=== PATIENT | male | born 1940 ===

== ENCOUNTER 2020-06-20 17:06 | Inpatient (IN) | payer MEDICARE, OTHER ==
[2020-06-20] MEDS ORDERED: HEPARIN SODIUM,PORCINE 5,000 UNIT/ML 1 ML VIAL IV PRN (17:19)
[2020-06-20] MEDS: HEPARIN SOD,PORK IN 0.45% NACL 25,000 UNIT in 0.45% NACL 1 250ML.BAG IV SCH (17:50)
[2020-06-20] MEDS: SODIUM CHLORIDE 0.9% 1,000 ML IV SCH (17:53)
[2020-06-20 18:00] LABS: Glucose,Whole Blood 141 mg/dL (75-99)
--- NOTE | 2020-06-20 18:41 | XR ---
EXAMINATION TYPE: XR chest 1V portable DATE OF EXAM: 06/20/2020 CLINICAL HISTORY: Preoperative cardiac surgery. TECHNIQUE: Single AP portable frontal upright view of the chest is obtained. COMPARISON: None FINDINGS: There is reticular interstitial changes bilaterally felt to reflect chronic parenchymal fib rosis. There is no suspicious focal air space opacity, pleural effusion, or pneumothorax seen. The c ardiac silhouette size is upper limits of normal with atherosclerotic thoracic aorta. Degenerative ch jhony bilateral glenohumeral joints. IMPRESSION: Chronic changes without acute pulmonary process.
--- NOTE | 2020-06-20 18:51 | P.GSCN ---
History of Present Illness Consult date: 06/20/20 Reason for Consult: Symptomatic multivessel coronary artery disease, non-STEMI this admission, evaluation for myocardial revascularization surgery. Requesting physician: Nuria Coombs History of present illness: This is an 80-year-old gentleman who is followed by Dr. Hawthorne on an outpatient basis. He is a past medical history significant for myasthenia gravis. The patient is a poor historian, although reports he reported to [facility] emergency room Department on 06/17/2020 with complaints of shortness of breath, a 40 pound weight loss since spring, difficulty swallowing and taking his pills, dizziness which has been present for about 2 weeks, unable to open his eyes and had some upper extremity weakness. He denies any nausea, vomiting, fever, chills, syncope, orthopnea or chest pain. According to his records from [facility] the patient was not taking his medications for his myasthenia gravis due to his inability to swallow. The patient reports that he does stay active, working in his yard, mowing his grass and completing another house chores although lately has been getting shortness of breath with walking only around 100 feet. A computed tomography scan of his abdomen was completed at [facility] which showed a normal liver, normal gallbladder, and no pancreatic mass. A computed tomography scan of the chest was completed which showed some mild atelectasis, no pulmonary embolus, and no pleural effusions. A chest x-ray report from [facility] showed some mild atelectasis left lung. The patient was started on Augmentin for possible aspiration pneumonia. A 12-lead EKG was also completed which showed normal sinus rhythm, atrial premature complexes in couplets, abnormal R-wave progression with a heart rate of 78. Lab work from 06/20/2020 from [facility] showed a WBC count of 23.7, hemoglobin 15.5, platelets 267, BUN 24, creatinine 0.9, glucose 163, AST 58, ALT 98, hemoglobin A1c 5.6, troponin as high as 7.489, a negative COVID-19 test and a TSH from 06/18/2020 1.132. A 2-D echocardiogram was also completed which showed a normal left ventricular size, moderate concentric left ventricular hypertrophy, left ventricular systolic function to be severely decreased with an ejection fraction of 30%, moderate aortic valve regurgitation, trace mitral valve regurgitation, moderate tricuspid valve regurgitation and no pericardial effusion. Subsequently, due to the patient's shortness of breath and positive troponins he was seen by Dr. FELICITAS Coombs from [facility] and underwent a cardiac catheterization today 06/20/2020 which demonstrated an 80% stenosis to his distal left main coronary artery with a haziness suggestive of thrombus, a 90% stenosis to his ostial left anterior descending coronary artery, a 60% stenosis to his mid left anterior descending coronary artery, an 80% ostial circumflex stenosis, a 60-70% stenosis to his mid circumflex coronary artery, and a 70% stenosis to his PLV coronary artery. Due to the findings on the cardiac catheterization the patient was transferred to [facility] for further workup and evaluation by cardiothoracic surgery. A consult was placed to Dr. Wilber Mcclelland. Review of Systems A 14 point review of systems was completed and was negative except as mentioned in the HPI. Past Medical History Additional Past Medical History / Comment(s): Myasthenia gravis History of Any Multi-Drug Resistant Organisms: None Reported Past Surgical History: Hernia Repair Additional Past Surgical History / Comment(s): Bilateral cataract surgery, right arm surgery due to a fractured bone as a child. History of umbilical and right inguinal hernia surgery. Past Psychological History: No Psychological Hx Reported Smoking Status: Never smoker Past Alcohol Use History: Rare Past Drug Use History: None Reported - Past Family History Father Additional Family Medical History / Comment(s): Alzheimer's Mother Additional Family Medical History / Comment(s): Alzheimer's Medications and Allergies Allergies Allergy/AdvReac Type Severity Reaction Status Date / Time No Known Allergies Allergy Verified 06/20/20 17:13 Surgical - Exam - General well developed, well nourished, no distress, no pain - Eyes PERRL, normal ocular movement - ENT normal pinna, normal nares, normal mucosa, no hearing loss, no congestion, poor senior care - Neck Neck is supple, no JVD, no lymphadenopathy. no masses, no bruits, trachea midline, no venous distension - Respiratory lungs sounds essentially clear throughout, diminished to his bilateral bases. No wheezes, rhonchi or crackles. Respirations are symmetrical and nonlabored. - Cardiovascular Irregular rhythm with controlled rate. S1 and S2 present, negative for S3, gallop or murmur. - Abdomen Abdomen is soft, nontender and nondistended. Active bowel sounds present in all 4 abdominal quadrants. No guarding or rigidity. No organomegaly appreciated. - Genitourinary Deferred - Rectum Deferred - Integumentary no rash, no growths, no abnormal pigmentation - Neurologic No focal deficits. normal coordination, normal sensation - Psychiatric oriented to time, oriented to person, oriented to place, speech is normal, memory intact Results - Labs Abnormal Lab Results - Last 24 Hours (Table) 06/20/20 Range/Units 17:59 POC Glucose (mg/dL) 141 H (75-99) mg/dL - Imaging Additional studies: Heart catheterization results reviewed, 2-D echocardiogram results reviewed. Assessment and Plan Assessment: 1. Multivessel coronary artery disease 2. Non-ST elevated myocardial infarction this admission 3. Progressive dyspnea, possibly secondary to above 4. Myasthenia gravis, recent difficulty swallowing and 40 pound weight loss 5. High risk for aspiration, secondary to myasthenia gravis 6. Documented aspiration pneumonia, currently on Augmentin Plan: The patient was seen and examined at his bedside in the intensive care unit. His chart and diagnostics were reviewed. This case was discussed in detail with Dr. Wilber Mcclelland from cardiothoracic surgery, the patient will be seen and examined by cardiothoracic surgeon tomorrow 06/21/2020. Preoperative testing and preoperative teaching has been initiated. The usual preoperative course of open heart surgery were discussed with the patient in detail, risks and benefits were reviewed and all questions were answered. Continue to optimize medical management with statin, aspirin and beta kyaw. Cardiology recommendations per Dr. FELICITAS Coombs and cardiology associates. Medical management per primary care service. A STS risk score will be calculated once all preoperative testing has been completed. More recommendations to follow based on patient's clinical course and as his preoperative testing has been completed. Due to the patient's other comorbid condition in the form of myasthenia gravis the patient may be a high risk for myocardial revascularization surgery which will be further discussed versus complex multivessel PCI with heart pump support. Thank you Dr. Coombs for this consult and we look forward to working with you in the care of this patient. Time with Patient: Greater than 30
[2020-06-20 18:54] LABS: Basophils % (A) 0 %; Eosinophils # (A) 0.1 k/uL (0-0.7); Eosinophils % (A) 1 %; HCT 51.3 % (39.0-53.0); HGB 16.3 gm/dL (13.0-17.5); Lymphocytes # (A) 1.8 k/uL (1.0-4.8); Lymphocytes % (A) 7 %; MCH 30.9 pg (25.0-35.0); MCHC 31.7 g/dL (31.0-37.0); MCV 97.4 fL (80.0-100.0); Mean Platelet Volume 8.7; Monocytes # (A) 1.4 k/uL (0-1.0); Monocytes % (A) 6 %; Neutrophils # (A) 21.3 k/uL (1.3-7.7); Neutrophils % (A) 86 %; Platelet Count 301 k/uL (150-450); RBC 5.27 m/uL (4.30-5.90); RDW 12.1 % (11.5-15.5); WBC 24.8 k/uL (3.8-10.6)
[2020-06-20 19:00] LABS: ALT 77 U/L (4-49); AST 65 U/L (17-59); African American GFR (CKD) >90 (>60 ml/min/1.73 sqM); Albumin 3.6 g/dL (3.5-5.0); Alkaline Phosphatase 73 U/L (38-126); Anion Gap -3 mmol/L; Blood Urea Nitrogen 21 mg/dL (9-20); Calcium 9.3 mg/dL (8.4-10.2); Carbon Dioxide 26 mmol/L (22-30); Chloride 113 mmol/L (98-107); Glucose 141 mg/dL (74-99); INR 1.1 (<1.2); Magnesium 2.3 mg/dL (1.6-2.3); Non-African American GFR(CKD) >90 (>60 ml/min/1.73 sqM); Partial Thromboplastin Time 48.8 sec (22.0-30.0); Phosphorus 3.1 mg/dL (2.5-4.5); Potassium 4.2 mmol/L (3.5-5.1); Prothrombin Time 11.4 sec (9.0-12.0); Sodium 136 mmol/L (137-145); Total Bilirubin 1.1 mg/dL (0.2-1.3); Total Protein 5.9 g/dL (6.3-8.2)
[2020-06-20 19:29] LABS: Cholesterol 155 mg/dL (<200); HDL Cholesterol 61 mg/dL (40-60); LDL Cholesterol,Calculated 74 mg/dL (0-99); Triglycerides 99 mg/dL (<150)
[2020-06-20] MEDS ORDERED: ALBUTEROL NEBULIZED 2.5 MG/3 ML INHALATION PRN (20:12)
[2020-06-20] MEDS ORDERED: ACETAMINOPHEN TAB 325 MG TAB PO PRN (20:12)
[2020-06-20] MEDS ORDERED: ONDANSETRON 4 MG/2 ML VIAL IVP PRN (20:35)
[2020-06-20 20:42] LABS: Glucose,Whole Blood 144 mg/dL (75-99)
[2020-06-20] MEDS ORDERED: PYRIDOSTIGMINE 60 MG TAB PO SCH (21:00)
[2020-06-20] MEDS ORDERED: AMOXIC-POT CLAV 875-125MG 1 EACH TAB PO SCH (21:00)
[2020-06-20] MEDS ORDERED: METOPROLOL TARTRATE 12.5 MG TAB PO SCH ×2 (21:00→22:00)
[2020-06-20] MEDS: INSULIN ASPART (NovoLOG) 100 UNIT/ML VIAL SQ SCH (21:17)
[2020-06-20] MEDS: methylPREDNISolone SOD SUCCI 125 MG/2 ML VIAL IV SCH (21:18)
[2020-06-20] MEDS: MUPIROCIN 2% OINT 22 GM TUBE NASAL SCH (21:18)
--- NOTE | 2020-06-20 23:08 | P.HPIM ---
History of Present Illness H&P Date: 06/20/20 Chief Complaint: Non-ST CT, multiple coronary artery disease, severe progressive myasthenia 80-year-old male one of Dr. Hawthorne patient who presented to [facility] on 06/17/2012 with significant dysphagia and shortness of breath with significant anorexia. Ended up going for significant workup at [facility] CT of the chest failed to show any PE but found aspiration pneumonia, patient was started on heavy doses of steroids along with Mestinon for his myasthenia gravis and symptoms improved some but developed to have run of V. tach last night was seeing cardiology BNP was moderately elevated 12-lead EKG showed some PVCs echocardiogram showed significant decrease in ejection fraction with EF of only 30-35 percentile with wall more Chin abnormality of the left ventricle with possible ballooning syndrome patient ended up going to the labour market economist with Dr. Catrachito carrillo finding consistent with 80% stenosis of the distal left main with haziness suggestive of thrombus, 90% stenosis of the ostial left anterior descending coronary artery, 60% stenosis of mid left anterior descending coronary artery and 80% oh still circumflex stenosis and 60-70% stenosis of the mid circumflex coronary artery 70% stenosis of PLV coronary artery due to the current finding and the symptom patient was transferred to [facility] to be seen by cardiothoracic surgeon for possible open heart surgery. Still symptomatic with his anorexia and dysphagia has been on steroid which made his white blood cell and blood sugar slightly but elevated he has responded to Mestinon quite well so far and continue medication. Optimize medical management still been treated for aspiration pneumonia patient seen pulmonary service at [facility] which will be continued at [facility] as well. Review of Systems CONSTITUTIONAL: Well-developed no acute respiratory distress. EYES: No icterus sclerae, no conjunctivitis. Positive slight heaviness in the eyelid and opening area. EARS, NOSE, MOUTH, THROAT, and FACE: No sore throat, lymphadenopathy, carotid bruits or deformity. RESPIRATORY: Positive shortness of breath cough no wheezes. CARDIOVASCULAR: Positive V. tach along with significant coronary disease. GASTROINTESTINAL: Positive abdominal discomfort with nausea no vomiting positive dysphagia. GENITOURINARY: Negative for Hematuria or UTI, no kidney stones. INTEGUMENT/BREAST: Negative for any muscular injury with mild osteoarthritis.. HEMATOLOGIC/LYMPHATIC: Negative for bleed or purpura. MUSCULOSKELTAL: Negative for Myalgia or arthralgia. NEURLOGICAL: No LOC, Sz or syncope, blurred vision dizziness or abnormality.. Positive significant weakness and myasthenia. BEHAVIORAL/PSYCH: Negative. ENDOCRINE: Negative. Past Medical History Past Medical History: Chest Pain / Angina Additional Past Medical History / Comment(s): Myasthenia gravis History of Any Multi-Drug Resistant Organisms: None Reported Past Surgical History: Hernia Repair Additional Past Surgical History / Comment(s): Bilateral cataract surgery, right arm surgery due to a fractured bone as a child. History of umbilical and right inguinal hernia surgery. Past Anesthesia/Blood Transfusion Reactions: No Reported Reaction Past Psychological History: No Psychological Hx Reported Smoking Status: Never smoker Past Alcohol Use History: Rare Past Drug Use History: None Reported - Past Family History Father Additional Family Medical History / Comment(s): Alzheimer's Mother Additional Family Medical History / Comment(s): Alzheimer's Medications and Allergies Home Medications Medication Instructions Recorded Confirmed Type Acetaminophen Tab [Tylenol] 650 mg PO Q6H PRN 06/20/20 06/20/20 History Albuterol Nebulized [Ventolin 2.5 mg INHALATION RT-QID PRN 06/20/20 06/20/20 History Nebulized] Amoxic-Pot Clav 875-125Mg 1 tab PO Q12H 06/20/20 06/20/20 History [Augmentin 875-125] Aspirin EC [Ecotrin Low Dose] 81 mg PO DAILY 06/20/20 06/20/20 History Chlorhexidine Gluconate [Hibiclens] 1 applic TOPICAL DAILY PRN 06/20/20 06/20/20 History Famotidine [Pepcid] 20 mg PO DAILY 06/20/20 06/20/20 History INSULIN LISPRO (humaLOG) [humaLOG] See Protocol SQ ACHS 06/20/20 06/20/20 History Losartan [Cozaar] 25 mg PO DAILY 06/20/20 06/20/20 History Metoprolol Tartrate [Lopressor] 12.5 mg PO TID 06/20/20 06/20/20 History Pyridostigmine [place] [Mestinon] 120 mg PO AC-TID 06/20/20 06/20/20 History Pyridostigmine [place] [Mestinon] 180 mg PO HS 06/20/20 06/20/20 History Solu-Medrol 60mg Injection 60 mg IV Q8H 06/20/20 06/20/20 History Zofran 4mg Injection 4 mg IV Q4H PRN 06/20/20 06/20/20 History Allergies Allergy/AdvReac Type Severity Reaction Status Date / Time No Known Allergies Allergy Verified 06/20/20 19:29 Physical Exam Vitals: Vital Signs Temp Pulse Resp BP Pulse Ox 06/20/20 19:45 72 22 109/92 94 L 06/20/20 19:30 73 26 H 139/97 94 L 06/20/20 19:15 98 13 128/89 95 06/20/20 19:00 83 12 130/105 92 L 06/20/20 18:45 97 22 134/93 92 L 06/20/20 18:30 73 20 125/97 92 L 06/20/20 18:15 92 11 L 136/98 92 L 06/20/20 18:06 97.5 F L 78 17 136/98 92 L Intake and Output 06/20/20 06/20/20 06/20/20 06:59 14:59 22:59 Intake Total 150 Balance 150 Intake: Intake, IV Titration 150 Amount Sodium Chloride 0.9% 1, 150 000 ml @ 75 mls/hr IV . [id number] Rx#:[id number] Other: Weight 82.5 kg General Appearance: Alert, cooperative, no distress, appears stated age. Neck HEENT: Supple, no lymphadenopathy, no thyroid enlargement, no carotid bruits. Opening of dye slightly red different and had mild upper eye lid ptosis Lungs: Clear to auscultation without crackles or wheezes positive for rhonchi and crackles in the bases specially the right side. Chest Wall: Decrease expansion with deep inspiration no tenderness and no deformity was found on exam, no costochondral pain or discomfort. Heart: Regular rate and rhythm, S1, S2 normal,, rub or gallop. Positive systolic murmur. Back: Symmetric, no curvature, ROM normal, no CVA tenderness. Abdomen: Soft, non-tender, bowel sounds active all four quadrants, no masses, no organomegaly. Extremities: Extremities normal, atraumatic, no cyanosis or edema. Pulses: 2+ and symmetric. Skin: Skin color, texture, tugor normal, no rashes or lesions. Neurologic: Alert oriented x3 cranial nerves II through XII intact, no motor deficit, positive abnormal balance or gait. Results CBC & Chem 7: 06/20/20 18:27 06/20/20 18:27 Labs: Abnormal Lab Results - Last 24 Hours (Table) 06/20/20 06/20/20 06/20/20 Range/Units 17:59 18:27 18:27 WBC 24.8 H (3.8-10.6) k/uL Neutrophils # 21.3 H (1.3-7.7) k/uL Monocytes # 1.4 H (0-1.0) k/uL APTT 48.8 H (22.0-30.0) sec Sodium (137-145) mmol/L Chloride (98-107) mmol/L BUN (9-20) mg/dL Creatinine (0.66-1.25) mg/dL Glucose (74-99) mg/dL POC Glucose (mg/dL) 141 H (75-99) mg/dL AST (17-59) U/L ALT (4-49) U/L Total Protein (6.3-8.2) g/dL HDL Cholesterol (40-60) mg/dL 06/20/20 Range/Units 18:27 WBC (3.8-10.6) k/uL Neutrophils # (1.3-7.7) k/uL Monocytes # (0-1.0) k/uL APTT (22.0-30.0) sec Sodium 136 L (137-145) mmol/L Chloride 113 H (98-107) mmol/L BUN 21 H (9-20) mg/dL Creatinine 0.61 L (0.66-1.25) mg/dL Glucose 141 H (74-99) mg/dL POC Glucose (mg/dL) (75-99) mg/dL AST 65 H (17-59) U/L ALT 77 H (4-49) U/L Total Protein 5.9 L (6.3-8.2) g/dL HDL Cholesterol 61 H (40-60) mg/dL Thrombosis Risk Factor Assmnt - DVT/VTE Prophylaxis DVT/VTE Prophylaxis: Pharmacologic Prophylaxis ordered, Mechanical Prophylaxis ordered Assessment and Plan Assessment: [address]: With multiple coronary artery disease as described patient be seen in cardiothoracic surgery and might go for open heart surgery next few days. 2 aspiration pneumonia: Was on Augmentin freeman Ashley, was start patient on medication for now if relapse IV medication can be use continue albuterol nebulizer to help from any airway trapping. 3 severe progressive myasthenia gravis: Has been on Mestinon 120 mg 3 times a day along with Mestinon 180 mg at bedtime still on heavy dose of steroid with Solu-Medrol injection 60 mg every 8 hours. 4 Hypertension: Remain on losartan metoprolol. 5 significant leukocytosis: Mostly secondary to steroid use at this point. 6 abnormal liver function test: Not a clear etiology this point if needed will do liver and gallbladder ultrasound. 7 steroid-induced hyperglycemia: Continue Accu-Chek with sliding scales coverage. 8 GI prophylaxis: Patient be on pantoprazole. 8 DVT prophylaxis: Patient continues heparin subcutaneous if the surgery be delayed otherwise continue knee-high JASS hose and Venodyne boots. 9 mild reactive airway: Remain on DuoNeb as needed. 10 Covid 19 testing was -48 hours ago. CODE STATUS: Full code. Admit patient to inpatient service for more than 2 days' stay.
[2020-06-21 03:24] LABS: Appearance,Urine Clear (Clear); Bilirubin,Urine Negative (Negative); Blood,Urine Large (Negative); Color,Urine Yellow; Glucose,Urine (UA) Negative (Negative); Hyaline Casts,Urine 1 /lpf (0-2); Ketones,Urine Negative (Negative); Leukocyte Esterase,Urine Negative (Negative); Mucus,Urine Few /hpf; Nitrite,Urine Negative (Negative); Protein,Urine Trace (Negative); RBC,Urine >182 /hpf (0-5); Specific Gravity,Urine 1.035 (1.001-1.035); Urobilinogen,Urine <2.0 mg/dL (<2.0); WBC,Urine 3 /hpf (0-5)
[2020-06-21 05:19] LABS: Basophils % (A) 0 %; Eosinophils % (A) 0 %; HCT 47.5 % (39.0-53.0); HGB 15.3 gm/dL (13.0-17.5); Lymphocytes # (A) 1.5 k/uL (1.0-4.8); Lymphocytes % (A) 6 %; MCHC 32.3 g/dL (31.0-37.0); Mean Platelet Volume 8.9; Monocytes # (A) 2.1 k/uL (0-1.0); Monocytes % (A) 9 %; Neutrophils % (A) 84 %; Platelet Count 287 k/uL (150-450); RBC 4.94 m/uL (4.30-5.90); RDW 12.7 % (11.5-15.5); WBC 24.9 k/uL (3.8-10.6)
[2020-06-21 05:28] LABS: ALT 65 U/L (4-49); AST 52 U/L (17-59); African American GFR (CKD) >90 (>60 ml/min/1.73 sqM); Albumin 3.2 g/dL (3.5-5.0); Alkaline Phosphatase 64 U/L (38-126); Anion Gap -1 mmol/L; Blood Urea Nitrogen 21 mg/dL (9-20); Calcium 9.1 mg/dL (8.4-10.2); Carbon Dioxide 24 mmol/L (22-30); Chloride 113 mmol/L (98-107); Glucose 125 mg/dL (74-99); Magnesium 2.3 mg/dL (1.6-2.3); Non-African American GFR(CKD) >90 (>60 ml/min/1.73 sqM); Potassium 4.2 mmol/L (3.5-5.1); Sodium 136 mmol/L (137-145); Total Bilirubin 1.1 mg/dL (0.2-1.3); Total Protein 5.4 g/dL (6.3-8.2)
[2020-06-21 05:29] LABS: INR 1.1 (<1.2); Partial Thromboplastin Time 62.6 sec (22.0-30.0); Prothrombin Time 11.3 sec (9.0-12.0)
[2020-06-21] MEDS: methylPREDNISolone SOD SUCCI 125 MG/2 ML VIAL IV SCH (05:30)
[2020-06-21] MEDS: SODIUM CHLORIDE 0.9% 1,000 ML IV SCH ×2 (05:30→20:47)
[2020-06-21 06:49] LABS: Glucose,Whole Blood 127 mg/dL (75-99)
[2020-06-21] MEDS: INSULIN ASPART (NovoLOG) 100 UNIT/ML VIAL SQ SCH ×4 (06:49→21:00)
[2020-06-21] MEDS: PYRIDOSTIGMINE 60 MG TAB PO SCH ×3 (06:54→20:39)
[2020-06-21] MEDS ORDERED: PIPERACILLIN-TAZOBACTAM 3.375 GM in SODIUM CHLORIDE 0.9% 100 ML IVPB SCH (08:30)
[2020-06-21] MEDS ORDERED: ASPIRIN 81 MG PO SCH (09:00)
[2020-06-21] MEDS: ASPIRIN 81 MG PO SCH (09:32)
[2020-06-21] MEDS: FAMOTIDINE 20 MG TAB PO SCH (09:32)
[2020-06-21] MEDS: ATORVASTATIN 80 MG TAB PO SCH (09:32)
[2020-06-21] MEDS: METOPROLOL TARTRATE 25 MG TAB PO SCH ×2 (09:32→20:45)
[2020-06-21] MEDS: MUPIROCIN 2% OINT 22 GM TUBE NASAL SCH ×2 (09:33→21:00)
[2020-06-21] MEDS: LOSARTAN 25 MG TAB PO SCH (09:35)
--- NOTE | 2020-06-21 10:04 | PN ---
PROGRESS NOTE Mr. Anderson is an 80-year-old male who presented to [facility] and was found to have evidence of non ST-segment elevation myocardial infarction, underwent cardiac catheterization by Dr. Coombs yesterday and was found to have severe triple- vessel coronary artery disease with an 80% distal left main, 90% ostial LAD, 60% mid LAD, 80% ostial circumflex and significant disease in the PLV. He was transferred to [facility] to undergo evaluation for surgical intervention. Patient has a history of myasthenia gravis with some difficulty swallowing. This morning he is not complaining of any chest pain. He has a cough, productive of clear sputum. He denies any dizziness or palpitation. He denies any nausea. He had a chest x-ray performed that showed no acute infiltrate. He continues to be on IV heparin, aspirin, Lipitor 80 mg daily, losartan 25 mg daily. He is receiving methyl prednisolone. He is on metoprolol tartrate 12.5 mg 3 times a day. PHYSICAL EXAMINATION: Blood pressure 113/70 with a heart rate in the 70s. LUNGS: No wheezes or rales. HEART: S1, S2. No S3 with systolic murmur heard at the base. No diastolic murmur, no rub. ABDOMEN: Soft, nontender, positive bowel sounds. EXTREMITIES: No edema, right radial pulse intact. LAB DATA: Revealed hemoglobin 15.3, white blood cell 24.9, BUN and creatinine 21 and 0.62. Potassium 4.2. IMPRESSION: 1. Non ST-segment elevation myocardial infarction with severe coronary artery disease. 2. Myasthenia gravis. 3. Recent weight loss. 4. Ischemic cardiomyopathy. RECOMMENDATION: Will await the input of the Surgical Team. In the meantime, will continue on the present therapy. I will adjust the dose of his beta kyaw. Will continue IV heparin and depending on his progress, further recommendation will be made. MMODL / IJN: [id number] /
--- NOTE | 2020-06-21 11:31 | XR ---
EXAMINATION TYPE: XR chest 1V portable DATE OF EXAM: 06/21/2020 CLINICAL HISTORY: Aspiration pneumonia TECHNIQUE: Portable upright view of the chest obtained COMPARISON: 06/20/2020 chest radiograph FINDINGS: The cardiomediastinal silhouette is within normal limits for size. Pulmonary vasculature i s normal. Mildly coarsened interstitial markings. Small focus of linear atelectasis of the left costo phrenic angle. There is no focal air space opacity, pleural effusion, or pneumothorax seen. Degenerat suman changes of the shoulders. IMPRESSION: No acute cardiopulmonary process.
--- NOTE | 2020-06-21 11:51 | ECHOF ---
Referral Reason:nstemi MEASUREMENTS -------- HEIGHT: 152.4 cm WEIGHT: 82.6 kg BP: RVIDd: 3.6 cm (< 3.3) IVSd: 1.6 cm (0.6 - 1.1) LVIDd: 4.5 cm (3.9 - 5.3) LVPWd: 2.0 cm (0.6 - 1.1) EDV(Teich): 94 ml IVSs: 2.0 cm LVIDs: 4.5 cm LVPWs: 1.4 cm %IVS Thck: 29 % ESV(Teich): 90 ml EF(Teich): 4 % %FS: 2 % SV(Teich): 3 ml LA Diam: 4.4 cm (2.7 - 3.8) MV EXCURSION: 18.742 mm (> 18.000) MV EF SLOPE: 51 mm/s (70 - 150) EPSS: 0.3 cm MV E Raj: 0.37 m/s MV DecT: 240 ms MV Dec [place]: 1.6 m/s MV A Raj: 0.79 m/s MV E/A Ratio: 0.48 MV PHT: 70 ms TR Vmax: 2.41 m/s TR maxP.31 mmHg RAP: 5.00 mmHg RVSP: 28.31 mmHg FINDINGS -------- Sinus rhythm. This was a techncally difficult study with suboptimal views, , Lumason utilized for enhancement of im ages. There is mild concentric left ventricular hypertrophy. There is severe global hypokinesis of LV . Overall left ventricular systolic function is severely impaired with, an EF < 20%. Extensive hypokin esis of anterior wall and apex The right ventricle is normal in size. The left atrium is mildly dilated. The right atrial size is normal. 5.0mg OF Lumason UTLIZED: 2 OR MORE WALL SEGMENTS NOT VISUALIZED. There is mild aortic valve sclerosis. There is no evidence of aortic regurgitation. Mild mitral annular calcification present. Mild mitral regurgitation is present. Mild tricuspid regurgitation present. Right ventricular systolic pressure is normal at < 35 mmHg. There is no pulmonic regurgitation present. The aortic root size is normal. There is a trivial pericardial effusion present. CONCLUSIONS -------- 1. There is mild concentric left ventricular hypertrophy. 2. There is severe global hypokinesis of LV . 3. Overall left ventricular systolic function is severely impaired with, an EF < 20%. 4. The right ventricle is normal in size. 5. The left atrium is mildly dilated. 6. The right atrial size is normal. 7. There is mild aortic valve sclerosis. 8. Mild mitral annular calcification present. 9. Mild mitral regurgitation is present. 10. Mild tricuspid regurgitation present. 11. Right ventricular systolic pressure is normal at < 35 mmHg. 12. There is no pulmonic regurgitation present. 13. There is a trivial pericardial effusion present. TRUCK SERVICE MANAGER: Lizzeth Sears RDCS
[2020-06-21 12:03] LABS: Glucose,Whole Blood 136 mg/dL (75-99)
--- NOTE | 2020-06-21 12:13 | P.CNPUL ---
History of Present Illness Consult date: 06/21/20 Requesting physician: Stanley Cordoba Reason for consult: other (Preoperative pulmonary clearance.) Chief complaint: Non-ST myocardial infarction History of present illness: This is an 80-year-old white male with history of myasthenia gravis. Patient was admitted to [facility] on 06/17/20, and he was mostly admitted with difficulty swallowing and shortness of breath with significant anorexia. CT of the chest and chest x-ray question the possibility of aspiration pneumonia. Patient was placed on antibiotics. And he was also placed on his usual dose of Mestinon for underlying myasthenia gravis. While inpatient, patient developed nonsustained ventricular tachycardia, and elevation of his BNP. Echocardiogram showed significant LV dysfunction with ejection fraction of 30-35%. Patient underwent further cardiac workup including cardiac catheterization, and he was found to have significant triple-vessel coronary artery disease. Considering the cardiac catheterization findings, patient was transferred to [facility], and he is to be seen by surgery to consider myocardial revascularization. Considering his myasthenia gravis and recent episode of questionable pneumonia, this consult was initiated. Patient denies any cough, no fever, no chills, no hemoptysis, he does have difficulty swallowing, and he is now on antibiotics in the form of Zosyn. Chest x-ray done on this admission showed no evidence of infiltrate. Patient had no previous pulmonary history, lifelong nonsmoker. Review of Systems CONSTITUTIONAL: Denies fever chills however he does have some weight loss secondary to poor appetite and difficulty swallowing. EYES: Denies blurred vision or dizziness. EARS, NOSE, throat: Denies any nasal congestion and earache, but again he has difficulty swallowing RESPIRATORY: As noted in HPI. CARDIOVASCULAR: Denies chest pain, he did have ventricular tachycardia while at [facility]. GASTROINTESTINAL: Chronic dysphagia no nausea no vomiting no abdominal pain.. GENITOURINARY: Denied dysuria frequency urgency or hematuria. INTEGUMENT: Has no symptoms of rashes. No pruritus. HEMATOLOGIC/LYMPHATIC: No clotting bleeding or bruising MUSCULOSKELTAL: Chronic muscle weakness related to myasthenia gravis. NEURLOGICAL: Symptoms of weakness related to myasthenia gravis. BEHAVIORAL/PSYCH: Denies any symptoms of depression, denies any anxiety. ENDOCRINE: Denies heat or cold intolerance. Denies any polyuria or polydipsia. Past Medical History Past Medical History: Chest Pain / Angina Additional Past Medical History / Comment(s): Myasthenia gravis History of Any Multi-Drug Resistant Organisms: None Reported Past Surgical History: Hernia Repair Additional Past Surgical History / Comment(s): Bilateral cataract surgery, right arm surgery due to a fractured bone as a child. History of umbilical and right inguinal hernia surgery. Past Anesthesia/Blood Transfusion Reactions: No Reported Reaction Past Psychological History: No Psychological Hx Reported Smoking Status: Never smoker Past Alcohol Use History: Rare Past Drug Use History: None Reported - Past Family History Father Additional Family Medical History / Comment(s): Alzheimer's Mother Additional Family Medical History / Comment(s): Alzheimer's Medications and Allergies Home Medications Medication Instructions Recorded Confirmed Type Acetaminophen Tab [Tylenol] 650 mg PO Q6H PRN 06/20/20 06/20/20 History Albuterol Nebulized [Ventolin 2.5 mg INHALATION RT-QID PRN 06/20/20 06/20/20 History Nebulized] Amoxic-Pot Clav 875-125Mg 1 tab PO Q12H 06/20/20 06/20/20 History [Augmentin 875-125] Aspirin EC [Ecotrin Low Dose] 81 mg PO DAILY 06/20/20 06/20/20 History Chlorhexidine Gluconate [Hibiclens] 1 applic TOPICAL DAILY PRN 06/20/20 06/20/20 History Famotidine [Pepcid] 20 mg PO DAILY 06/20/20 06/20/20 History INSULIN LISPRO (humaLOG) [humaLOG] See Protocol SQ ACHS 06/20/20 06/20/20 History Losartan [Cozaar] 25 mg PO DAILY 06/20/20 06/20/20 History Metoprolol Tartrate [Lopressor] 12.5 mg PO TID 06/20/20 06/20/20 History Pyridostigmine [place] [Mestinon] 120 mg PO AC-TID 06/20/20 06/20/20 History Pyridostigmine [place] [Mestinon] 180 mg PO HS 06/20/20 06/20/20 History Solu-Medrol 60mg Injection 60 mg IV Q8H 06/20/20 06/20/20 History Zofran 4mg Injection 4 mg IV Q4H PRN 06/20/20 06/20/20 History Allergies Allergy/AdvReac Type Severity Reaction Status Date / Time No Known Allergies Allergy Verified 06/20/20 19:29 Physical Exam Vitals: Vital Signs Temp Pulse Resp BP Pulse Ox 06/21/20 07:00 72 10 L 113/79 92 L 06/21/20 06:30 75 20 104/73 95 06/21/20 06:00 73 13 93/60 92 L 06/21/20 05:30 62 12 98/70 90 L 06/21/20 05:00 75 16 108/83 90 L 06/21/20 04:30 74 18 115/75 91 L 06/21/20 04:00 97.8 F 107 H 25 H 144/90 90 L 06/21/20 03:30 111 H 19 111/75 92 L 06/21/20 03:00 96 14 118/83 91 L 06/21/20 02:30 82 16 113/91 91 L 06/21/20 02:00 87 17 98/68 93 L 06/21/20 01:30 80 14 98/73 94 L 06/21/20 01:00 61 13 94/60 92 L 06/21/20 00:30 61 18 112/82 91 L 06/21/20 00:00 97.9 F 98 20 111/80 92 L 06/20/20 23:30 81 20 101/79 95 06/20/20 23:00 73 14 110/79 90 L 06/20/20 22:30 79 14 131/93 91 L 06/20/20 22:00 75 22 133/104 92 L 06/20/20 21:30 70 10 L 119/91 94 L 06/20/20 21:00 90 17 133/85 92 L 06/20/20 20:30 93 19 130/104 93 L 06/20/20 20:15 77 18 118/86 94 L 06/20/20 20:00 97.6 F 89 15 123/89 93 L 06/20/20 19:45 72 22 109/92 94 L 06/20/20 19:30 73 26 H 139/97 94 L 06/20/20 19:15 98 13 128/89 95 06/20/20 19:00 83 12 130/105 92 L 06/20/20 18:45 97 22 134/93 92 L 06/20/20 18:30 73 20 125/97 92 L 06/20/20 18:15 92 11 L 136/98 92 L 06/20/20 18:06 97.5 F L 78 17 136/98 92 L Intake and Output 06/20/20 06/21/20 06/21/20 22:59 06:59 14:59 Intake Total 375 668.475 75 Output Total 250 320 Balance 125 348.475 75 Intake: IV 225 600 75 Sodium Chloride 0.9% 1, 225 600 75 000 ml @ 75 mls/hr IV . [id number] [facility] Rx#:[id number] Intake, IV Titration 150 68.475 Amount Heparin Sod,Pork in 0.45% 68.475 NaCl 25,000 unit In 0.45 % NaCl 1 250ml.bag @ 12 UNITS/KG/HR 9.9 mls/hr IV .Q24H [facility] Rx#:[id number] Sodium Chloride 0.9% 1, 150 000 ml @ 75 mls/hr IV . [id number] [facility] Rx#:[id number] Output: Urine 250 320 Other: Voiding Method Urinal Urinal Weight 82.5 kg 83.1 kg General Appearance: Revealed an 80-year-old white male very pleasant in no distress. Neck HEENT: PERRLA, EOMI, no icterus, no neck masses, no JVD. Lungs: Symmetrical chest expansion, no crackles or rhonchi or wheezes. Chest Wall: Symmetrical chest expansion, no chest wall tenderness. Heart: Normal S1 and S2, regular rate and rhythm, no gallop, 2/6 systolic murmur at the left lower sternal border.. Abdomen: Soft nontender no megaly no rebound no guarding. Positive bowel sounds. Extremities: No clubbing edema or cyanosis. Good pulses bilaterally. And symmetrical Skin: Skin color, normal skin texture and turgor. Neurologic: Alert and oriented 3, no gross focal neurologic deficits. Patient describes muscle weakness mostly proximal muscle weakness upon lifting his upper extremities. Psychiatric: Normal mood affect and normal mental status examination. Results - Laboratory Findings CBC and BMP: 06/21/20 04:25 06/21/20 04:25 PT/INR, D-dimer PT 11.3 sec (9.0-12.0) 06/21/20 04:25 INR 1.1 (<1.2) 06/21/20 04:25 Abnormal lab findings: Abnormal Labs 06/20/20 06/20/20 06/20/20 17:59 18:27 18:27 WBC 24.8 H Neutrophils # 21.3 H Monocytes # 1.4 H APTT 48.8 H Sodium Chloride BUN Creatinine Glucose POC Glucose (mg/dL) 141 H AST ALT Total Protein Albumin HDL Cholesterol Urine Protein Urine Blood Urine RBC Urine Mucus 06/20/20 06/20/20 06/20/20 18:27 20:40 23:57 WBC Neutrophils # Monocytes # APTT 66.5 H Sodium 136 L Chloride 113 H BUN 21 H Creatinine 0.61 L Glucose 141 H POC Glucose (mg/dL) 144 H AST 65 H ALT 77 H Total Protein 5.9 L Albumin HDL Cholesterol 61 H Urine Protein Urine Blood Urine RBC Urine Mucus 06/21/20 06/21/20 06/21/20 03:10 04:25 04:25 WBC 24.9 H Neutrophils # 21.0 H Monocytes # 2.1 H APTT 62.6 H Sodium Chloride BUN Creatinine Glucose POC Glucose (mg/dL) AST ALT Total Protein Albumin HDL Cholesterol Urine Protein Trace H Urine Blood Large H Urine RBC >182 H Urine Mucus Few H 06/21/20 06/21/20 04:25 06:48 WBC Neutrophils # Monocytes # APTT Sodium 136 L Chloride 113 H BUN 21 H Creatinine Glucose 125 H POC Glucose (mg/dL) 127 H AST ALT 65 H Total Protein 5.4 L Albumin 3.2 L HDL Cholesterol Urine Protein Urine Blood Urine RBC Urine Mucus - Diagnostic Findings Chest x-ray: image reviewed (No evidence of infiltrate.) Assessment and Plan Assessment: Impression: Acute non-ST elevation myocardial infarction. Ischemic cardiomyopathy and LV dysfunction. Questionable aspiration pneumonia on his initial presentation, no evidence of pneumonia seen on chest x-ray on this admission. Progressive myasthenia gravis. Benign essential hypertension. Recommendation: Continue present supportive care measures. Continue Zosyn empirically. Speech therapy to evaluate for swallow evaluation. Considering the above medical issues, Patient is considered high operative risk for myocardial revascularization, hence would recommend neurological evaluation and clearance. Encourage incentive spirometry. Bedside PFT to be done. suspect that the patient will have significant restriction. We will continue to follow. Time with Patient: Greater than 30
[2020-06-21 12:47] LABS: Hepatitis A Antibody IgM Non-Reactive (Non-Reactive); Hepatitis B Core IgM Non-Reactive (Non-Reactive); Hepatitis B Surface Antigen Non-Reactive (Non-Reactive); Hepatitis C IgG Antibody Non-Reactive (Non-Reactive)
--- NOTE | 2020-06-21 13:21 | P.CNNES ---
History of Present Illness Consult date: 06/21/20 Requesting physician: Liz Marie Reason for Consult: Myasthenia Gravis History of Present Illness: This is an 80-year-old gentleman with history of Myasthenia Gravis (diagnosed on 11/2019) that was transfered from outside facility on 06/20/20 for his significant Coronary artery disease. Patient initially presented to [facility] on 06/17/2020 with significant dysphagia to solid and liquids and shortness of breath at rest and with exertion. He ended up going for workup at [facility] and had that CT of the chest which did not show any pulmonary embolism but found aspiration pneumonia. Patient was started on the heavy doses of steroids along with Mestinon for his myasthenia gravis and symptoms improved some but developed one of V. tach last night and was seen . EKG was reported as PVCs, . Echocardiogram shows significant decrease in ejection fraction with ejection fraction of only 30-35%. 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 [facility] laboratory professional with Dr. Coombs finding consistent with multiple coronary artery disease with stenosis as well as thrombus. As a result patient was transferred to [facility] for escalation of care. Patient states that he states that he hasn't been having any diplopia. He he has been having difficulty swallowing the food. During his current hospitalization: Initial vitals: blood pressure was 136/98. The heart rate was 78, respiratory rate was 17. The temperature is 97.5 orally. Oxygen saturation is 92 L at room air. He had a chest x-ray on 06/20/2020 which shows a chronic changes without acute pulmonary process. His white blood cell initially was 24.8, predominantly neutrophilic. Sodium 136. I spoke with the patient daughter via phone: She stated that the patient's symptoms began in September 2019 where he had ptosis of the eyes cannot tell me which I it was. He had workup and stroke was ruled out. Then the patient is diagnosed with myasthenia gravis at Dr. Hawthorne office. He did have workup at his office and she doesn't know exactly workup. Patient was initially started on Mestinon 160 mg every 8 hours. In February, he had Myasthenia Gravis exacerbation and he received one session. She believes was IVIG. Then his Mestinon was increased to 260 mg every 8 hours. In May 2020 he still had worsening of his symptoms and the his Mestinon was increased to 260 times a day and an additional 180 mg of time span at night. She said that the patient's has been having worsening of shortness of breath at rest and with exertion since this past Thursday (06/17/2020) and had a choking episode while eating. She said that he was having difficult with swallowing to liquids and solids. And that has been having worsening of his double vision on both eyes. We'll as extreme dizziness. According the to the daughter the patient had the infusion session for myasthenia gravis last Thursday and Thursday as an outpatient but no improvement. In the past he's been on tapering dose of prednisone but not any time recently. The patient continues to follow-up with his neurologist as an outpatient (Dr. Hawthorne) regarding his myasthenia gravis. Review of Systems Review of system: The 12 point system was reviewed and apparent positive and negative per HPI. Past Medical History Past Medical History: Chest Pain / Angina Additional Past Medical History / Comment(s): Myasthenia gravis History of Any Multi-Drug Resistant Organisms: None Reported Past Surgical History: Hernia Repair Additional Past Surgical History / Comment(s): Bilateral cataract surgery, right arm surgery due to a fractured bone as a child. History of umbilical and right inguinal hernia surgery. Past Anesthesia/Blood Transfusion Reactions: No Reported Reaction Past Psychological History: No Psychological Hx Reported Smoking Status: Never smoker Past Alcohol Use History: Rare Past Drug Use History: None Reported - Past Family History Father Additional Family Medical History / Comment(s): Alzheimer's Mother Additional Family Medical History / Comment(s): Alzheimer's Medications and Allergies Home Medications Medication Instructions Recorded Confirmed Type Acetaminophen Tab [Tylenol] 650 mg PO Q6H PRN 06/20/20 06/20/20 History Albuterol Nebulized [Ventolin 2.5 mg INHALATION RT-QID PRN 06/20/20 06/20/20 History Nebulized] Amoxic-Pot Clav 875-125Mg 1 tab PO Q12H 06/20/20 06/20/20 History [Augmentin 875-125] Aspirin EC [Ecotrin Low Dose] 81 mg PO DAILY 06/20/20 06/20/20 History Chlorhexidine Gluconate [Hibiclens] 1 applic TOPICAL DAILY PRN 06/20/20 06/20/20 History Famotidine [Pepcid] 20 mg PO DAILY 06/20/20 06/20/20 History INSULIN LISPRO (humaLOG) [humaLOG] See Protocol SQ ACHS 06/20/20 06/20/20 History Losartan [Cozaar] 25 mg PO DAILY 06/20/20 06/20/20 History Metoprolol Tartrate [Lopressor] 12.5 mg PO TID 06/20/20 06/20/20 History Pyridostigmine [place] [Mestinon] 120 mg PO AC-TID 06/20/20 06/20/20 History Pyridostigmine [place] [Mestinon] 180 mg PO HS 06/20/20 06/20/20 History Solu-Medrol 60mg Injection 60 mg IV Q8H 06/20/20 06/20/20 History Zofran 4mg Injection 4 mg IV Q4H PRN 06/20/20 06/20/20 History Allergies Allergy/AdvReac Type Severity Reaction Status Date / Time No Known Allergies Allergy Verified 06/20/20 19:29 Physical Examination - Vital Signs Vital Signs: Vital Signs Temp Pulse Resp BP Pulse Ox 06/21/20 07:00 72 10 L 113/79 92 L 06/21/20 06:30 75 20 104/73 95 06/21/20 06:00 73 13 93/60 92 L 06/21/20 05:30 62 12 98/70 90 L 06/21/20 05:00 75 16 108/83 90 L 06/21/20 04:30 74 18 115/75 91 L 06/21/20 04:00 97.8 F 107 H 25 H 144/90 90 L 06/21/20 03:30 111 H 19 111/75 92 L 06/21/20 03:00 96 14 118/83 91 L 06/21/20 02:30 82 16 113/91 91 L 06/21/20 02:00 87 17 98/68 93 L 06/21/20 01:30 80 14 98/73 94 L 06/21/20 01:00 61 13 94/60 92 L 06/21/20 00:30 61 18 112/82 91 L 06/21/20 00:00 97.9 F 98 20 111/80 92 L 06/20/20 23:30 81 20 101/79 95 06/20/20 23:00 73 14 110/79 90 L 06/20/20 22:30 79 14 131/93 91 L 06/20/20 22:00 75 22 133/104 92 L 06/20/20 21:30 70 10 L 119/91 94 L 06/20/20 21:00 90 17 133/85 92 L 06/20/20 20:30 93 19 130/104 93 L 06/20/20 20:15 77 18 118/86 94 L 06/20/20 20:00 97.6 F 89 15 123/89 93 L 06/20/20 19:45 72 22 109/92 94 L 06/20/20 19:30 73 26 H 139/97 94 L 06/20/20 19:15 98 13 128/89 95 06/20/20 19:00 83 12 130/105 92 L 06/20/20 18:45 97 22 134/93 92 L 06/20/20 18:30 73 20 125/97 92 L 06/20/20 18:15 92 11 L 136/98 92 L 06/20/20 18:06 97.5 F L 78 17 136/98 92 L Intake and Output 06/20/20 06/21/20 06/21/20 22:59 06:59 14:59 Intake Total 375 668.475 75 Output Total 250 320 Balance 125 348.475 75 Intake: IV 225 600 75 Sodium Chloride 0.9% 1, 225 600 75 000 ml @ 75 mls/hr IV . [id number] [facility] Rx#:[id number] Intake, IV Titration 150 68.475 Amount Heparin Sod,Pork in 0.45% 68.475 NaCl 25,000 unit In 0.45 % NaCl 1 250ml.bag @ 12 UNITS/KG/HR 9.9 mls/hr IV .Q24H [facility] Rx#:[id number] Sodium Chloride 0.9% 1, 150 000 ml @ 75 mls/hr IV . [id number] [facility] Rx#:[id number] Output: Urine 250 320 Other: Voiding Method Urinal Urinal Weight 82.5 kg 83.1 kg GENERAL: The patient is lying in sitting in bed and is not in acute distress. CHEST: The heart rate is regular rate rhythm. No murmurs to auscultation. He had suctioning tube hear him. LUNG: Clear to auscultation. Not labored breathing. ABDOMEN/GI: Bowel sounds present in all 4 quadrants. No tenderness to palpation throughout. NEUROLOGICAL: Higher mental function: The patient is awake, alert, oriented to self, place and time. Patient is following simple commands. No aphasia and no neglect. Cranial nerves: The pupils are round, 2mm bilaterally, equal and reactive to light and accommodation. Has significant ptosis bilaterally (left > right). Visual jimenez are full to confrontation on lower field bilaterally and intact to threat on upper field. Extraocular movement is intact no nystagmus is noted. Facial sensation is normal to touch throughout. The facial strength is normal throughout. Hearing is hard of hearing. Tongue is midline and moved [id number] without any difficulty. No dysarthria is noted. No nasal speech noted Shoulder shrug is 4- bilaterally. Motor: Gait is defered. The strength is proximally is 4+ in bilaterally upper extremities and 4+to 5- proximally in bilateral lower extremities. Otherwise 5 over 5 throughout. Normal tone and bulk. Sensation: Sensation is normal to touch throughout. Reflexes (right/left): 3+ bilateral brachioradialis and 2+ rest of upper extremities. Lower extremities are 1+ throughout. Plantars are downgoing bilaterally. Results PT of 11.4, INR of 1.1, PTT of 48.8. - Laboratory Findings CBC and BMP: 06/21/20 04:25 06/21/20 04:25 Abnormal Lab Findings: Abnormal Labs 06/20/20 06/20/20 06/20/20 17:59 18:27 18:27 WBC 24.8 H Neutrophils # 21.3 H Monocytes # 1.4 H APTT 48.8 H Sodium Chloride BUN Creatinine Glucose POC Glucose (mg/dL) 141 H AST ALT Total Protein Albumin HDL Cholesterol Urine Protein Urine Blood Urine RBC Urine Mucus 06/20/20 06/20/20 06/20/20 18:27 20:40 23:57 WBC Neutrophils # Monocytes # APTT 66.5 H Sodium 136 L Chloride 113 H BUN 21 H Creatinine 0.61 L Glucose 141 H POC Glucose (mg/dL) 144 H AST 65 H ALT 77 H Total Protein 5.9 L Albumin HDL Cholesterol 61 H Urine Protein Urine Blood Urine RBC Urine Mucus 06/21/20 06/21/20 06/21/20 03:10 04:25 04:25 WBC 24.9 H Neutrophils # 21.0 H Monocytes # 2.1 H APTT 62.6 H Sodium Chloride BUN Creatinine Glucose POC Glucose (mg/dL) AST ALT Total Protein Albumin HDL Cholesterol Urine Protein Trace H Urine Blood Large H Urine RBC >182 H Urine Mucus Few H 06/21/20 06/21/20 04:25 06:48 WBC Neutrophils # Monocytes # APTT Sodium 136 L Chloride 113 H BUN 21 H Creatinine Glucose 125 H POC Glucose (mg/dL) 127 H AST ALT 65 H Total Protein 5.4 L Albumin 3.2 L HDL Cholesterol Urine Protein Urine Blood Urine RBC Urine Mucus Assessment and Plan Assessment: Mr. Anderson is a 80-year-old gentleman with history of Myasthenia Gravis (diagnosed on 11/2019) that was transfered from outside facility on 06/20/20 for his significant Coronary artery disease. On 06/17/2020 patient has significant dysphagia to solids and liquids and per daughter he had a chocking episode, shortness of breath at rest and with exertion and excessive secretion. At outside facility it showed aspiration pneumonia and significant Coronary artery disease and was transfered for escalation of care. Myasthenia gravis exacerbation Coronary artery disease with multiple stenosis as well as thrombus of the vessels Aspiration pneumonia Plan: Because of the patient's dysphagia to solids and liquids as well as worsening of the shortness of breath and increased the secretion seems that the patient has a muscular gravis exacerbation. I'll treat the patient with IVIG for 3 doses. Currently the patient is on Solu-Medrol 60 mg IV every 8 hours. Recommend stopping the Solu-Medrol which can cause exacerbation of muscular gravis. Recommend getting a negative inspiratory force as well as vital capacity every 6 hours. Recommend the patient being on the IVIG 2g/kg over 3 sessions. Currently he is on Mestinon 120 mg 3 times a day as well 180mg daily. Will stop the night dose for now and to be resumed upon discharge. Currently on Metoprolol 25 mg twice a day, aspirin 81 mg, Lipitor 80 mg. Statins can now worsen myasthenia gravis exacerbation and if needed recommend low-dose dose. On Losartan 25 mg daily and Zosyn Status and can also worsen his Muscular gravis condition if needed low-dose possible dose Myasthenia gravis medications to avoid: Fluoroquinolone, aminoglycoside, magnesium sulfate, penicillamine, beta blockers, quinidine, botulism, ketolide antibiotics, lithium, albuterol, olanzapine, methylprednisone, prednisone, benzodiazepine, opiates, We'll defer the management of the coronary artery disease to cardiology team. Per the nurse the patient is not having any intervention. Regarding the patient aspiration pneumonia we'll defer the management to the primary as well as ICU team. Thank you for the consult. Garry Maya M.D. Neuro-hospitalist Time with Patient: Greater than 30
[2020-06-21 13:32] LABS: Hemoglobin A1C 5.8 % (4.0-6.0)
--- NOTE | 2020-06-21 13:35 | US ---
EXAMINATION TYPE: US carotid duplex BILAT DATE OF EXAM: 06/21/2020 COMPARISON: NONE CLINICAL HISTORY: Pre-Op Cardiac Surgery, ankle Brachial Index (KYLE) . EXAM MEASUREMENTS: RIGHT: Peak Systolic Velocity (PSV) cm/sec ----- Right CCA: 61.0 ----- Right ICA: 77.4 ----- Right ECA: 82.3 ICA/CCA ratio: 1.3 RIGHT: End Diastole cm/sec ----- Right CCA: 9.0 ----- Right ICA: 20.3 ----- Right ECA: 6.2 LEFT: Peak Systolic Velocity (PSV) cm/sec ----- Left CCA: 63.6 ----- Left ICA: 68.9 ----- Left ECA: 62.3 ICA/CCA ratio: 1.1 LEFT: End Diastole cm/sec ----- Left CCA: 10.8 ----- Left ICA: 18.8 ----- Left ECA: 0.0 VERTEBRALS (direction of flow): Right Vertebral: Retrograde Left Vertebral: Minimal to no flow. Rhythm: Arrhythmia Mild atherosclerotic changes with no significant velocity increases seen on bilateral ICA's. IMPRESSION: 1. No evidence of hemodynamically significant carotid artery stenosis bilaterally. Any stenosis of th e carotid arteries may be present is less than 50%. 2. Retrograde flow of the right vertebral artery. Minimal to no flow seen in the left vertebral arter y. Recommend clinical correlation for possible subclavian steal syndrome or neurological symptoms. 3. Arrhythmia. Criteria for Assigning % of Stenosis / Diameter reduction (Estimation based on the indirect measurements of the internal carotid artery velocities (ICA PSV). 1. Normal (no stenosis)=ICA PSV < 125 cm/s: ratio < 2.0: ICA EDV<40 cm/s. 2. Less than 50% stenosis=ICA PSV < 125 cm/s: ratio < 2.0: ICA EDV<40 cm/s. 3. 50 to 69% stenosis=ICA PSV of 125 to 230 cm/s: ration 2.0 ? 4.0: ICA EDV 40-100 cm/s. 4. Greater than 70% stenosis to near occlusion= ICA PSV > 230 cm/s: ratio > 4.0: ICA EDV > 100 cm/s. 5. Near occlusion= ICA PSV velocities may be low or undetectable: variable ratio and ICA EDV. 6. Total occlusion=unable to detect flow.
--- NOTE | 2020-06-21 14:40 | P.PN ---
Subjective Progress Note Date: 06/21/20 80-year-old male one of Dr. Hawthorne patient who presented to [facility] on 06/17/2012 with significant dysphagia and shortness of breath with significant anorexia. Ended up going for significant workup at [facility] CT of the chest failed to show any PE but found aspiration pneumonia, patient was started on heavy doses of steroids along with Mestinon for his myasthenia gravis and symptoms improved some but developed to have run of V. 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 Coombs finding consistent with 80% stenosis of the distal left main with haziness suggestive of thrombus, 90% stenosis of the ostial left anterior descending coronary artery, 60% stenosis of mid left anterior descending coronary artery and 80% oh still circumflex stenosis and 60-70% stenosis of the mid circumflex coronary artery 70% stenosis of PLV coronary artery due to the current finding and the symptom patient was transferred to [facility] to be seen by cardiothoracic surgeon for possible open heart surgery. Still symptomatic with his anorexia and dysphagia has been on steroid which made his white blood cell and blood sugar slightly but elevated he has responded to Mestinon quite well so far and continue medication. [facility] management still been treated for aspiration pneumonia patient seen pulmonary service at [facility] which will be continued at [facility] as well. 06/21: Patient remains in the intensive care unit. He is waiting to see cardiothoracic surgery. Dr. Jarvis has evaluated the patient and cleared him for surgical intervention. He denies the patient has pneumonia and Zosyn will be discontinued. Patient states that he is feeling about the same as yesterday. His swallowing status is about the same as yesterday. His monitor technician is sinus rhythm with ectopy. We have added in consult for neurology to manage myasthenia gravis while hospitalized. Patient has been afebrile, heart rate 79, blood pressure 116/88, pulse ox 90% on 2 L nasal cannula. Repeat blood work reveals WBC 24.9, hemoglobin 15.3. Sodium 136, potassium 4.2, chloride 113, CO2 24, BUN 21 and creatinine 0.66. Blood sugars are running 124th 2035. Hemoglobin A1c is 5.8. ALT 65. Review of systems CONSTITUTIONAL: Well-developed no acute respiratory distress. Denies fever EYES: No icterus sclerae, no conjunctivitis. Positive slight heaviness in the e yelid and opening area. EARS, NOSE, MOUTH, THROAT, and FACE: No sore throat, lymphadenopathy, carotid bruits or deformity. RESPIRATORY: Positive shortness of breath cough no wheezes. CARDIOVASCULAR: Positive V. tach along with significant coronary disease. GASTROINTESTINAL: Positive abdominal discomfort with nausea no vomiting positive dysphagia. GENITOURINARY: Negative for Hematuria or UTI, no kidney stones. INTEGUMENT/BREAST: Negative for any muscular injury with mild osteoarthritis.. HEMATOLOGIC/LYMPHATIC: Negative for bleed or purpura. MUSCULOSKELTAL: Negative for Myalgia or arthralgia. NEURLOGICAL: No LOC, Sz or syncope, blurred vision dizziness or abnormality.. Positive significant weakness and myasthenia. BEHAVIORAL/PSYCH: Negative. ENDOCRINE: Negative. Physical examination General Appearance: Alert, cooperative, no distress, appears stated age. Neck HEENT: Supple, no lymphadenopathy, no thyroid enlargement, no carotid bruits. Opening of dye slightly red different and had mild upper eye lid ptosis Lungs: Clear to auscultation without crackles or wheezes positive for rhonchi and crackles in the bases specially the right side. Chest Wall: Decrease expansion with deep inspiration no tenderness and no deformity was found on exam, no costochondral pain or discomfort. Heart: Regular rate and rhythm, S1, S2 normal,, rub or gallop. Positive systolic murmur. radiation monitor is sinus rhythm with PVCs and PACs Back: Symmetric, no curvature, ROM normal, no CVA tenderness. Abdomen: Soft, non-tender, bowel sounds active all four quadrants, no masses, no organomegaly. Extremities: Extremities normal, atraumatic, no cyanosis or edema. Pulses: 2+ and symmetric. Skin: Skin color, texture, tugor normal, no rashes or lesions. Neurologic: Alert oriented x3 cranial nerves II through XII intact, no motor deficit, positive abnormal balance or gait. Assessment and plan 1 non-ST NV: With multiple coronary artery disease as described patient be seen in cardiothoracic surgery and might go for open heart surgery next few days. 2 aspiration pneumonia ruled out by Dr. Jarvis. Zosyn will be discontinued. continue albuterol nebulizer to help from any airway trapping. 3 severe progressive myasthenia gravis: Has been on Mestinon 120 mg 3 times a day along with Mestinon 180 mg at bedtime still on heavy dose of steroid with Solu-Medrol injection 60 mg every 8 hours. Consult with neurology. 4 Hypertension: Remain on losartan metoprolol. 5 significant leukocytosis: Mostly secondary to steroid use at this point. 6 abnormal liver function test: Not a clear etiology this point if needed will do liver and gallbladder ultrasound. 7 steroid-induced hyperglycemia: Continue Accu-Chek with sliding scales coverage. 8 GI prophylaxis: Patient be on pantoprazole. 8 DVT prophylaxis: Patient continues heparin subcutaneous if the surgery be delayed otherwise continue knee-high JASS hose and Venodyne boots. 9 mild reactive airway: Remain on DuoNeb as needed. CODE STATUS: Full code. Discharge plan: To be determined Impression and plan of care have been directed as dictated by the signing physician. Liz Marie nurse practitioner acting as scribe for signing physician. Objective - Vital Signs Vital signs: Vital Signs Temp 97.8 F 06/21/20 04:00 Pulse 72 06/21/20 07:00 Resp 10 L 06/21/20 07:00 BP 113/79 06/21/20 07:00 Pulse Ox 92 L 06/21/20 07:00 Intake & Output 06/20/20 06/21/20 06/21/20 18:59 06:59 18:59 Intake Total 75 968.475 75 Output Total 570 Balance 75 398.475 75 Weight 82.5 kg 83.1 kg Intake: IV 825 75 Sodium Chloride 0.9% 1, 825 75 000 ml @ 75 mls/hr IV . [id number] [facility] Rx#:[id number] Intake, IV Titration 75 143.475 Amount Heparin Sod,Pork in 0.45% 68.475 NaCl 25,000 unit In 0.45 % NaCl 1 250ml.bag @ 12 UNITS/KG/HR 9.9 mls/hr IV .Q24H [facility] Rx#:[id number] Sodium Chloride 0.9% 1, 75 75 000 ml @ 75 mls/hr IV . [id number] [facility] Rx#:[id number] Output: Urine 570 Other: Voiding Method Urinal - Labs CBC & Chem 7: 06/21/20 04:25 06/21/20 04:25 Labs: Abnormal Lab Results - Last 24 Hours (Table) 06/20/20 06/20/20 06/20/20 Range/Units 17:59 18:27 18:27 WBC 24.8 H (3.8-10.6) k/uL Neutrophils # 21.3 H (1.3-7.7) k/uL Monocytes # 1.4 H (0-1.0) k/uL APTT 48.8 H (22.0-30.0) sec Sodium (137-145) mmol/L Chloride (98-107) mmol/L BUN (9-20) mg/dL Creatinine (0.66-1.25) mg/dL Glucose (74-99) mg/dL POC Glucose (mg/dL) 141 H (75-99) mg/dL AST (17-59) U/L ALT (4-49) U/L Total Protein (6.3-8.2) g/dL Albumin (3.5-5.0) g/dL HDL Cholesterol (40-60) mg/dL Urine Protein (Negative) Urine Blood (Negative) Urine RBC (0-5) /hpf Urine Mucus (None) /hpf 06/20/20 06/20/20 06/20/20 Range/Units 18:27 20:40 23:57 WBC (3.8-10.6) k/uL Neutrophils # (1.3-7.7) k/uL Monocytes # (0-1.0) k/uL APTT 66.5 H (22.0-30.0) sec Sodium 136 L (137-145) mmol/L Chloride 113 H (98-107) mmol/L BUN 21 H (9-20) mg/dL Creatinine 0.61 L (0.66-1.25) mg/dL Glucose 141 H (74-99) mg/dL POC Glucose (mg/dL) 144 H (75-99) mg/dL AST 65 H (17-59) U/L ALT 77 H (4-49) U/L Total Protein 5.9 L (6.3-8.2) g/dL Albumin (3.5-5.0) g/dL HDL Cholesterol 61 H (40-60) mg/dL Urine Protein (Negative) Urine Blood (Negative) Urine RBC (0-5) /hpf Urine Mucus (None) /hpf 06/21/20 06/21/20 06/21/20 Range/Units 03:10 04:25 04:25 WBC 24.9 H (3.8-10.6) k/uL Neutrophils # 21.0 H (1.3-7.7) k/uL Monocytes # 2.1 H (0-1.0) k/uL APTT 62.6 H (22.0-30.0) sec Sodium (137-145) mmol/L Chloride (98-107) mmol/L BUN (9-20) mg/dL Creatinine (0.66-1.25) mg/dL Glucose (74-99) mg/dL POC Glucose (mg/dL) (75-99) mg/dL AST (17-59) U/L ALT (4-49) U/L Total Protein (6.3-8.2) g/dL Albumin (3.5-5.0) g/dL HDL Cholesterol (40-60) mg/dL Urine Protein Trace H (Negative) Urine Blood Large H (Negative) Urine RBC >182 H (0-5) /hpf Urine Mucus Few H (None) /hpf 06/21/20 06/21/20 Range/Units 04:25 06:48 WBC (3.8-10.6) k/uL Neutrophils # (1.3-7.7) k/uL Monocytes # (0-1.0) k/uL APTT (22.0-30.0) sec Sodium 136 L (137-145) mmol/L Chloride 113 H (98-107) mmol/L BUN 21 H (9-20) mg/dL Creatinine (0.66-1.25) mg/dL Glucose 125 H (74-99) mg/dL POC Glucose (mg/dL) 127 H (75-99) mg/dL AST (17-59) U/L ALT 65 H (4-49) U/L Total Protein 5.4 L (6.3-8.2) g/dL Albumin 3.2 L (3.5-5.0) g/dL HDL Cholesterol (40-60) mg/dL Urine Protein (Negative) Urine Blood (Negative) Urine RBC (0-5) /hpf Urine Mucus (None) /hpf Microbiology - Last 24 Hours (Table) 06/20/20 21:45 Nasal Screen MRSA/MSSA - Preliminary Nasal Swab
[2020-06-21] MEDS ORDERED: IMMUNE GLOBULIN (GAMMAGARD) 20 GM in EMPTY BAG 1 BAG IV ONE (16:00)
--- NOTE | 2020-06-21 16:31 | P.PN ---
Subjective Progress Note Date: 06/21/20 Principal diagnosis: Symptomatic multivessel coronary artery disease, non-STEMI this admission, ischemic cardiomyopathy with LV dysfunction, myasthenia gravis with recent difficulty swallowing and 40 pound weight loss, aspiration pneumonia currently on Augmentin. Previous medical history of hypertension. The patient is currently sitting up in the intensive care unit in no acute distress. Denies any chest pain or shortness of breath. He was seen and examined this morning by Dr. Mcclelland who did discuss the case with Dr. FELICITAS Coombs. The patient continues to cough up significant amounts of clear to yellow sputum. Objective - Vital Signs Vital signs: Vital Signs Temp 97.7 F 06/21/20 12:00 Pulse 71 06/21/20 12:30 Resp 20 06/21/20 12:30 BP 110/79 06/21/20 12:30 Pulse Ox 97 06/21/20 12:30 Intake & Output 06/20/20 06/21/20 06/21/20 18:59 06:59 18:59 Intake Total 75 968.475 550 Output Total 570 Balance 75 398.475 550 Weight 82.5 kg 83.1 kg Intake: IV 825 450 Sodium Chloride 0.9% 1, 825 450 000 ml @ 75 mls/hr IV . [id number] [facility] Rx#:[id number] Intake, IV Titration 75 143.475 100 Amount Heparin Sod,Pork in 0.45% 68.475 NaCl 25,000 unit In 0.45 % NaCl 1 250ml.bag @ 12 UNITS/KG/HR 9.9 mls/hr IV .Q24H [facility] Rx#:[id number] Piperacillin-Tazobactam 3 100 .375 gm In Sodium Chloride 0.9% 100 ml @ 25 mls/hr IVPB Q8HR [facility] Rx# :[id number] Sodium Chloride 0.9% 1, 75 75 000 ml @ 75 mls/hr IV . [id number] [facility] Rx#:[id number] Output: Urine 570 Other: Voiding Method Urinal # Voids 1 - Constitutional General appearance: Present: cooperative, no acute distress - Respiratory Details: Lungs sounds diminished bilaterally. Respirations even, nonlabored. Currently on 2 L nasal cannula with oxygen saturation 97%. - Cardiovascular Details: S1, S2 present. Irregular but controlled rate and rhythm, sinus rhythm with PACs and PVCs on telemetry. Palpable peripheral pulses bilaterally. No edema present. No calf pain or tenderness noted. - Gastrointestinal Gastrointestinal Comment(s): Abdomen soft, nontender, nondistended. Active bowel sounds present 4 quadrants. Currently nothing by mouth - Genitourinary Genitourinary Comment(s): Continues to void - Integumentary Integumentary Comment(s): Skin is warm and dry - Musculoskeletal Musculoskeletal: Present: strength equal bilaterally - Psychiatric Psychiatric: Present: A&O x's 3, appropriate affect - Allied health notes Allied health notes reviewed: nursing - Labs CBC & Chem 7: 06/21/20 04:25 06/21/20 04:25 Labs: Abnormal Lab Results - Last 24 Hours (Table) 06/20/20 06/20/20 06/20/20 Range/Units 17:59 18:27 18:27 WBC 24.8 H (3.8-10.6) k/uL Neutrophils # 21.3 H (1.3-7.7) k/uL Monocytes # 1.4 H (0-1.0) k/uL APTT 48.8 H (22.0-30.0) sec Sodium (137-145) mmol/L Chloride (98-107) mmol/L BUN (9-20) mg/dL Creatinine (0.66-1.25) mg/dL Glucose (74-99) mg/dL POC Glucose (mg/dL) 141 H (75-99) mg/dL AST (17-59) U/L ALT (4-49) U/L Total Protein (6.3-8.2) g/dL Albumin (3.5-5.0) g/dL HDL Cholesterol (40-60) mg/dL Urine Protein (Negative) Urine Blood (Negative) Urine RBC (0-5) /hpf Urine Mucus (None) /hpf 06/20/20 06/20/20 06/20/20 Range/Units 18:27 20:40 23:57 WBC (3.8-10.6) k/uL Neutrophils # (1.3-7.7) k/uL Monocytes # (0-1.0) k/uL APTT 66.5 H (22.0-30.0) sec Sodium 136 L (137-145) mmol/L Chloride 113 H (98-107) mmol/L BUN 21 H (9-20) mg/dL Creatinine 0.61 L (0.66-1.25) mg/dL Glucose 141 H (74-99) mg/dL POC Glucose (mg/dL) 144 H (75-99) mg/dL AST 65 H (17-59) U/L ALT 77 H (4-49) U/L Total Protein 5.9 L (6.3-8.2) g/dL Albumin (3.5-5.0) g/dL HDL Cholesterol 61 H (40-60) mg/dL Urine Protein (Negative) Urine Blood (Negative) Urine RBC (0-5) /hpf Urine Mucus (None) /hpf 06/21/20 06/21/20 06/21/20 Range/Units 03:10 04:25 04:25 WBC 24.9 H (3.8-10.6) k/uL Neutrophils # 21.0 H (1.3-7.7) k/uL Monocytes # 2.1 H (0-1.0) k/uL APTT 62.6 H (22.0-30.0) sec Sodium (137-145) mmol/L Chloride (98-107) mmol/L BUN (9-20) mg/dL Creatinine (0.66-1.25) mg/dL Glucose (74-99) mg/dL POC Glucose (mg/dL) (75-99) mg/dL AST (17-59) U/L ALT (4-49) U/L Total Protein (6.3-8.2) g/dL Albumin (3.5-5.0) g/dL HDL Cholesterol (40-60) mg/dL Urine Protein Trace H (Negative) Urine Blood Large H (Negative) Urine RBC >182 H (0-5) /hpf Urine Mucus Few H (None) /hpf 06/21/20 06/21/20 06/21/20 Range/Units 04:25 06:48 12:01 WBC (3.8-10.6) k/uL Neutrophils # (1.3-7.7) k/uL Monocytes # (0-1.0) k/uL APTT (22.0-30.0) sec Sodium 136 L (137-145) mmol/L Chloride 113 H (98-107) mmol/L BUN 21 H (9-20) mg/dL Creatinine (0.66-1.25) mg/dL Glucose 125 H (74-99) mg/dL POC Glucose (mg/dL) 127 H 136 H (75-99) mg/dL AST (17-59) U/L ALT 65 H (4-49) U/L Total Protein 5.4 L (6.3-8.2) g/dL Albumin 3.2 L (3.5-5.0) g/dL HDL Cholesterol (40-60) mg/dL Urine Protein (Negative) Urine Blood (Negative) Urine RBC (0-5) /hpf Urine Mucus (None) /hpf Microbiology - Last 24 Hours (Table) 06/20/20 21:45 Nasal Screen MRSA/MSSA - Preliminary Nasal Swab Assessment and Plan Assessment: 1. Symptomatic multivessel coronary artery disease, non-STEMI this admission 2. Ischemic cardiomyopathy with LV dysfunction 3. Myasthenia gravis with recent difficulty swallowing and 40 pound weight loss 4. Aspiration pneumonia currently on Augmentin 5. Previous medical history of hypertension. Plan: The patient was seen and examined at the bedside today with Dr. Mcclelland. Chart/diagnostics were reviewed. The case was discussed between Dr. Mcclelland and Dr. Coombs. At this point the patient is a prohibitive risk for surgery due to dyskinesia of the left ventricle, acute exacerbation of myasthenia gravis, current aspiration pneumonia on antibiotics, and patient's age. Recommend medical management versus high-risk stenting per Dr. Coombs's recommendation. We will see the patient again if needed, please call us with any further questions. Time with Patient: Greater than 30
--- NOTE | 2020-06-21 16:32 | FL ---
EXAMINATION TYPE: FL barium swallow w video DATE OF EXAM: 06/21/2020 CLINICAL HISTORY: 80-year-old male with history of myasthenia gravis, failed swallow study of the bed side, gurgly while eating. TECHNIQUE: Deglutition study is performed utilizing thin liquid barium, nectar thick liquid barium, and barium thick pudding. Total fluoroscopy time: 2 minutes 14 seconds. Total images: None. Real-time fluoroscopy support was provided to speech pathology. COMPARISON: None. FINDINGS: There is incomplete swallow. No epiglottic inversion is seen. There is deep penetration with mild terrie ent aspiration with thin liquids. There is gross aspiration with pureed consistency. There is deep pe netration with coating of the cords with nectar thick liquid. No improvement with chin tuck maneuver. Large residuals are noted. IMPRESSION: Gross aspiration with puree. Mild silent aspiration with thin liquid. Deep penetration with coating o f the vocal cords with nectar liquid. Large residuals. Incomplete swallow. Please refer to speech therapist notes for further details if necessary.
[2020-06-21 16:58] LABS: Glucose,Whole Blood 126 mg/dL (75-99)
[2020-06-21] MEDS ORDERED: IMMUNE GLOBULIN (GAMMAGARD) 30 GM in EMPTY BAG 1 BAG IV ONE (18:00)
[2020-06-21] MEDS ORDERED: DEXTROSE 5% IN WATER 100 ML with AMIODARONE 150 MG IV ONE (19:50)
--- NOTE | 2020-06-21 19:55 | XR ---
EXAMINATION TYPE: XR chest 1V portable DATE OF EXAM: 06/21/2020 COMPARISON: Today HISTORY: Short of breath TECHNIQUE: FINDINGS: There is some mild linear density at the left lung base. There is no heart failure. There a re no hilar masses. Heart size is normal. There are chest leads. IMPRESSION: There is some atelectasis at the left lung base unchanged compared to exam this morning. Normal heart.
[2020-06-21] MEDS ORDERED: AMIODARONE 360 MG in DEXTROSE 5% IN WATER 200 ML IV ONE ×2 (20:00)
[2020-06-21 20:48] LABS: Glucose,Whole Blood 222 mg/dL (75-99)
[2020-06-21] MEDS: ESMOLOL IN SODIUM CHLORIDE PMX 2.5 GM in SALINE 1 250ML.BAG IV SCH (20:52)
[2020-06-21] MEDS: HEPARIN SOD,PORK IN 0.45% NACL 25,000 UNIT in 0.45% NACL 1 250ML.BAG IV SCH (20:58)
[2020-06-22] MEDS ORDERED: FUROSEMIDE 10 MG/ML 4 ML VIAL IV STA (00:25)
[2020-06-22] MEDS ORDERED: LORazepam 2 MG/ML INJ IV PRN (00:26)
[2020-06-22] MEDS: AMIODARONE 300 MG in DEXTROSE 5% IN WATER 250 ML IV SCH ×4 (00:54→09:54)
[2020-06-22 01:24] VITALS: TEMP 98
[2020-06-22] MEDS ORDERED: NOREPINEPHRIN 4 MG-0.9% NS PMX 4 MG/250 ML ML IV ONE (01:34)
[2020-06-22] MEDS: NOREPINEPHRINE 4 MG in SODIUM CHLORIDE 0.9% 250 ML IV SCH ×2 (02:26→08:05)
[2020-06-22] MEDS: ESMOLOL IN SODIUM CHLORIDE PMX 2.5 GM in SALINE 1 250ML.BAG IV SCH (05:44)
[2020-06-22 06:06] LABS: Glucose,Whole Blood 147 mg/dL (75-99)
[2020-06-22] MEDS: INSULIN ASPART (NovoLOG) 100 UNIT/ML VIAL SQ SCH ×2 (06:07→12:51)
[2020-06-22 06:08] LABS: Basophils % (A) 0 %; Eosinophils # (A) 0.1 k/uL (0-0.7); Eosinophils % (A) 0 %; HCT 50.9 % (39.0-53.0); HGB 16.2 gm/dL (13.0-17.5); Lymphocytes # (A) 1.5 k/uL (1.0-4.8); Lymphocytes % (A) 8 %; MCH 31.5 pg (25.0-35.0); MCHC 31.8 g/dL (31.0-37.0); MCV 98.9 fL (80.0-100.0); Mean Platelet Volume 9.1; Monocytes % (A) 10 %; Neutrophils # (A) 15.2 k/uL (1.3-7.7); Neutrophils % (A) 80 %; Platelet Count 147 k/uL (150-450); RBC 5.15 m/uL (4.30-5.90); RDW 12.6 % (11.5-15.5)
[2020-06-22 06:20] LABS: Albumin 3.4 g/dL (3.5-5.0); Calcium 8.8 mg/dL (8.4-10.2); Potassium 4.3 mmol/L (3.5-5.1); Total Bilirubin 1.5 mg/dL (0.2-1.3); Total Protein 6.2 g/dL (6.3-8.2)
[2020-06-22] MEDS: PYRIDOSTIGMINE 60 MG TAB PO SCH ×3 (06:46→17:23)
[2020-06-22] MEDS: METOPROLOL TARTRATE 25 MG TAB PO SCH (08:02)
[2020-06-22] MEDS: LOSARTAN 25 MG TAB PO SCH (08:02)
[2020-06-22] MEDS: ATORVASTATIN 80 MG TAB PO SCH (08:02)
[2020-06-22] MEDS: FAMOTIDINE 20 MG TAB PO SCH (08:02)
[2020-06-22] MEDS: ASPIRIN 81 MG PO SCH (08:02)
[2020-06-22] MEDS: MUPIROCIN 2% OINT 22 GM TUBE NASAL SCH (08:03)
--- NOTE | 2020-06-22 09:04 | XR ---
EXAMINATION TYPE: XR chest 1V DATE OF EXAM: 06/22/2020 COMPARISON: 06/21/2020 HISTORY: Shortness of breath TECHNIQUE: Single frontal view of the chest is obtained. FINDINGS: Bilateral subsegmental consolidation and tiny effusion. Heart size stable. Hypertrophic an d degenerative change spine. No pneumothorax. Arthropathy of the shoulders. IMPRESSION: Stable bilateral lobe infiltrate and tiny effusion.
--- NOTE | 2020-06-22 09:07 | P.PN ---
Subjective Progress Note Date: 06/22/20 Principal diagnosis: Myasthenia Gravis exacerbation The patient received the first dose of IVIG yesterday. I was paged by the night nurse that the patient the was in A. fib while being on IVIG. The nurse stated that the patient received half of the bag so far.Nurse notified me that the patient never had A. fib prior to this and this is this was new. There's cases of patients with IVIG that developed arrhythmia such as A. fib and therefore I decided to stop IVIG. I notified the nurse that the hematology as needed for plasma exchange if can't get IVIG. As a result of the A. fib the patient was started on amiodarone. He is also on heparin drip. Objective - Vital Signs Vital signs: Vital Signs Temp 98 F 06/22/20 00:00 Pulse 78 06/22/20 07:00 Resp 13 06/22/20 07:00 BP 77/61 06/22/20 07:00 Pulse Ox 95 06/22/20 07:00 Intake & Output 06/21/20 06/22/20 06/22/20 18:59 06:59 18:59 Intake Total 925 604.094 222.128 Output Total 460 0 Balance 925 144.094 222.128 Weight 83 kg Intake: IV 825 145 10 0.9 NS 70 10 Sodium Chloride 0.9% 1, 825 75 000 ml @ 75 mls/hr IV . [id number] [facility] Rx#:[id number] Intake, IV Titration 100 459.094 212.128 Amount Esmolol in Sodium 249.509 Chloride Pmx 2.5 gm In Saline 1 250ml.bag @ 25 MCG/KG/MIN 12.465 mls/hr IV .Q20H4M [facility] Rx#: [id number] Heparin Sod,Pork in 0.45% 166.788 NaCl 25,000 unit In 0.45 % NaCl 1 250ml.bag @ 12 UNITS/KG/HR 9.9 mls/hr IV .Q24H [facility] Rx#:[id number] Norepinephrine 4 mg In 42.797 212.128 Sodium Chloride 0.9% 250 ml @ 0.05 MCG/KG/MIN 15. 831 mls/hr IV .Q16H3M [facility] Rx#:[id number] Piperacillin-Tazobactam 3 100 .375 gm In Sodium Chloride 0.9% 100 ml @ 25 mls/hr IVPB Q8HR [facility] Rx# :[id number] Output: Urine 460 0 Other: Voiding Method Urinal Urinal # Voids 1 # Bowel Movements 1 - Exam GENERAL: The patient is lying in bed and getting BiPAP and does not seem in distress. CHEST: The heart rate is irregular rate rhythm. No murmurs to auscultation. LUNG: Clear to auscultation. Not labored breathing. ABDOMEN/GI: Bowel sounds present in all 4 quadrants. No tenderness to palpation throughout. NEUROLOGICAL: Higher mental function: The patient is drowsy but is awakeable, oriented to self, place and time. Patient is following simple commands. No aphasia and no neglect. Cranial nerves: The pupils are round, 2mm bilaterally, equal and reactive to light and accommodation. Has significant ptosis bilaterally (left > right) and seems worse today compared to yesterday. VExtraocular movement is intact no nystagmus is noted. Facial sensation is normal to touch throughout. The facial strength is normal throughout. No dysarthria is noted. No nasal speech noted Shoulder shrug is 4- bilaterally. Motor: Gait is defered. The strength is proximally is 4+ in bilaterally upper extremities and 4+to 5- proximally in bilateral lower extremities. Otherwise 5 over 5 throughout. Normal tone and bulk. Sensation: Sensation is normal to touch throughout. Reflexes (right/left): 3+ bilateral brachioradialis and 2+ rest of upper e xtremities. Lower extremities are 1+ throughout. Plantars are downgoing bilaterally. - Labs CBC & Chem 7: 06/22/20 05:59 06/22/20 05:59 Labs: Abnormal Lab Results - Last 24 Hours (Table) 06/21/20 06/21/20 06/21/20 Range/Units 12:01 16:57 20:46 WBC (3.8-10.6) k/uL Plt Count (150-450) k/uL Neutrophils # (1.3-7.7) k/uL Monocytes # (0-1.0) k/uL Chloride (98-107) mmol/L BUN (9-20) mg/dL Glucose (74-99) mg/dL POC Glucose (mg/dL) 136 H 126 H 222 H (75-99) mg/dL Total Bilirubin (0.2-1.3) mg/dL AST (17-59) U/L ALT (4-49) U/L Total Protein (6.3-8.2) g/dL Albumin (3.5-5.0) g/dL 06/22/20 06/22/20 06/22/20 Range/Units 05:59 05:59 06:04 WBC 19.0 H (3.8-10.6) k/uL Plt Count 147 L (150-450) k/uL Neutrophils # 15.2 H (1.3-7.7) k/uL Monocytes # 2.0 H (0-1.0) k/uL Chloride 111 H (98-107) mmol/L BUN 29 H (9-20) mg/dL Glucose 170 H (74-99) mg/dL POC Glucose (mg/dL) 147 H (75-99) mg/dL Total Bilirubin 1.5 H (0.2-1.3) mg/dL AST 109 H (17-59) U/L ALT 157 H (4-49) U/L Total Protein 6.2 L (6.3-8.2) g/dL Albumin 3.4 L (3.5-5.0) g/dL Assessment and Plan Assessment: Mr. Anderson is a 80-year-old gentleman with history of Myasthenia Gravis (diagnosed on 11/2019) that was transfered from outside facility on 06/20/20 for his significant Coronary artery disease. On 06/17/2020 patient has significant dysphagia to solids and liquids and per daughter he had a chocking episode, shortness of breath at rest and with exertion and excessive secretion. At outside facility it showed aspiration pneumonia and significant Coronary artery disease and was transfered for escalation of care. Myasthenia gravis exacerbation Dysphagia secondary due to Myasthenia gravis exacerbation. Coronary artery disease with multiple stenosis as well as thrombus of the vessels Atrial fibrillation Aspiration pneumonia Plan: Because of the patient's dysphagia to solids and liquids as well as worsening of the shortness of breath and increased the secretion seems that the patient has a muscular gravis exacerbation. I started the patient on IVIG 2g/kg divided in 3 doses started on 06/21/20 but was notified by nurse that he had A-fib half way thru treatment and it was new so held medication. Upon speaking with Primary team they felt because of patient significant right coronary artery disease was likely cause of Atrial fibrillation and per ICU team she probably had runs of A-fib prior to IVIG but they said the IVIG made pulmonary hypertension worse. Upon speaking with Cardiology they felt patient has heart failure and were concerned about edema. In that condition since cardiology and ICU team are concerned about pulmonary edema then patient need Plasma exchange. Patient needs to be transfered. From neurology perspective if cardiology does not want to pursue with IVIG then patient need Plasma Exchange and needs to be transfered to a different facility for PLEX. Stopped Solu-Medrol which can cause exacerbation of muscular gravis. Recommend continuing negative inspiratory force as well as vital capacity every 6 hours. Currently he is on Mestinon 120 mg 3 times a day as well 180mg daily. Stopped the additional night dose for now and to be resumed upon discharge. We can go ahead with CT chest to rule out thymoma. Currently on Metoprolol 25 mg twice a day, aspirin 81 mg, Lipitor 80 mg. Statins can now worsen myasthenia gravis exacerbation and if needed recommend low-dose dose. On Losartan 25 mg daily and Zosyn Per the daughter the patient is on Mestinon 260mg 1 tab tid and an additional dose 180mg at night with total of 960mg. I feel that is too much and can cause cholinergic chrisis. Myasthenia gravis medications to avoid: Fluoroquinolone, aminoglycoside, magnesium sulfate, penicillamine, beta blockers, quinidine, botulism, ketolide antibiotics, lithium, albuterol, olanzapine, methylprednisone, prednisone, benzodiazepine, opiates, We'll defer the management of the coronary artery disease to cardiology team. Regarding the patient aspiration pneumonia we'll defer the management to the primary as well as ICU team. The patient will be transfered to [facility] The plan was discussed with the primary team. Garry Maya M.D. Neuro-hospitalist Time with Patient: Greater than 30
--- NOTE | 2020-06-22 09:20 | PN ---
PROGRESS NOTE Mr. Anderson is an 80-year-old male with history of myasthenia gravis, who presented to [facility], was diagnosed with a myocardial infarction, underwent cardiac catheterization, was found to have critical stenosis involving the left main with a thrombus involving the left circumflex. He has severe ischemic cardiomyopathy. He was transferred to [facility] for evaluation for possible coronary artery bypass grafting. He was felt to be a high risk for surgical intervention because of his myasthenia gravis. Last night, he received IgG infusion and during that time he had atrial fibrillation with rapid ventricular response requiring initiation of IV amiodarone and IV esmolol. He is dyspneic on the BiPAP. He was evaluated by the Neurology Service, patient is not able to swallow and because of that, Mestinon has not been given. He denies any chest pain at this time. He is in atrial fibrillation with controlled ventricular response. He has no dizziness, but he is complaining of dyspnea. He feels weak. He continued on the IV amiodarone as well as IV esmolol. His oral medication has been on hold because of his an inability to swallow. PHYSICAL EXAMINATION: Blood pressure running in the 90s to 100 with a heart rate in the 70 lungs. LUNGS: A few crackles at the bases. HEART: Irregular, regular, S1, S2. No S3 with systolic murmur, no diastolic murmur, no rub. ABDOMEN: Soft, nontender, positive bowel sounds, no organomegaly. EXTREMITIES: No edema. LAB DATA: Chest x-ray revealed mild congestion. His BUN and creatinine 29 and 0.95, potassium 4.3, hemoglobin 16.2, white blood cell of 19,000. His AST and ALT are 109 and 167. IMPRESSION: 1. Status post non ST-segment elevation myocardial infarction with severe left main disease. 2. Myasthenia gravis, unable to swallow or take his medication. 3. Atrial fibrillation started yesterday. 4. Severe ischemic cardiomyopathy. 5. Prior history of hypertension. RECOMMENDATION: The patient is unable to take his oral medication and unable to receive treatment for myasthenia gravis. According to the Neurology service, his best option is plasmapheresis, which is not offered here. I will discuss his case with Dr. Cordoba his primary care physician and one of the options, transfer him to a tertiary care unit to undergo plasmapheresis and subsequently high risk percutaneous revascularization that may require hemodynamic support. The prognosis remains quite poor. MMMABELL / IJN: [id number] /
[2020-06-22] MEDS ORDERED: DOBUTamine DRIP 500 MG in DEXTROSE/WATER 1 250ML.BAG IV SCH (09:30)
[2020-06-22] MEDS ORDERED: MORPHINE SULFATE 4 MG/ML SYRINGE IVP STA (10:42)
[2020-06-22] MEDS ORDERED: MIDAZOLAM 1 MG/ML 5 ML VIAL IV STA (10:42)
[2020-06-22] MEDS ORDERED: MIDAZOLAM 2 MG/2 ML VIAL ONE (10:43)
[2020-06-22] MEDS ORDERED: MIDAZOLAM 2 MG/2 ML VIAL IV STA (10:48)
[2020-06-22] MEDS ORDERED: CISATRACURIUM 2 MG/ML 5 ML VIAL IV ONE (10:50)
[2020-06-22] MEDS ORDERED: propofoL 100 ML IV ONE (11:10)
--- NOTE | 2020-06-22 11:12 | XR ---
EXAMINATION TYPE: XR chest 1V portable DATE OF EXAM: 06/22/2020 COMPARISON: 06/22/2020 HISTORY: Tube placement TECHNIQUE: Single frontal view of the chest is obtained. FINDINGS: ET tube 4.4 cm above mynor. NG tube noted. Right-sided central line appears with the tip overlying the right atrium. No sizable pneumothorax. There is persistent bilateral infiltrate. Heart size stable. Hypertrophic degenerative changes spine. Arthropathy of the shoulders. No overt failure. IMPRESSION: 1. ET tube appears in good position. 2. Bilateral lower lobe infiltrate and small effusion stable. Correlate for pneumonia.
[2020-06-22 11:14] LABS: ABG Base Excess -3.7 mmol/L; ABG HCO3 21 mmol/L (21-25); ABG Oxygen Saturation 99.8 % (94-97); ABG PCO2 36 mmHg (35-45); ABG PH 7.39 (7.35-7.45); ABG PO2 >400 mmHg (83-108); ABG TCO2 22 mmol/L (19-24)
[2020-06-22 11:18] LABS: Allen Test Performed? no
--- NOTE | 2020-06-22 12:01 | P.TRANS ---
Providers Date of admission: 06/20/20 17:07 Expected date of discharge: 06/22/20 Attending physician: Khadra Shrestha Consults: 06/20/20 17:13 Consult Physician Stat Consulting Provider: Wilber Mcclelland Consult Reason/Comments: open heart Do you want consulting provider notified?: Yes Consult Physician Urgent Consulting Provider: Nuria Coombs Consult Reason/Comments: nstemi Do you want consulting provider notified?: Already Contacted 06/21/20 08:29 Consult Physician Routine Consulting Provider: Garry Maya Consult Reason/Comments: myasthnia gravis management Do you want consulting provider notified?: Yes 06/21/20 08:30 Consult Physician Routine Consulting Provider: Macarena Jarvis Consult Reason/Comments: asp pn, need for CABG, myasthenia Do you want consulting provider notified?: Yes Primary care physician: Khadravita Shrestha [facility] Course: 80-year-old male one of Dr. Hawthorne patient who presented to [facility] on 06/17/2012 with significant dysphagia and shortness of breath with significant anorexia. Ended up going for significant workup at [facility] CT of the chest failed to show any PE but found aspiration pneumonia, patient was started on heavy doses of steroids along with Mestinon for his myasthenia gravis and symptoms improved some but developed to have run of V. tach last night was seeing cardiology BNP was moderately elevated 12-lead EKG showed some PVCs echocardiogram showed significant decrease in ejection fraction with EF of only 30-35 percentile with wall more Chin abnormality of the left ventricle with possible ballooning syndrome patient ended up going [facility]. Coombs finding consistent with 80% stenosis of the distal left main with haziness suggestive of thrombus, 90% stenosis of the ostial left anterior descending coronary artery, 60% stenosis of mid left anterior descending coronary artery and 80% oh still circumflex stenosis and 60-70% stenosis of the mid circumflex coronary artery 70% stenosis of PLV coronary artery due to the current finding and the symptom patient was transferred to [facility] to be seen by cardiothoracic surgeon for possible open heart surgery. Still symptomatic with his anorexia and dysphagia has been on steroid which made his white blood cell and blood sugar slightly but elevated he has responded to Mestinon quite well so far and continue medication. [facility] medical management still been treated for aspiration pneumonia patient seen pulmonary service at [facility] which will be continued at [facility] as well. 06/21: Patient remains in the intensive care unit. He is waiting to see cardiothoracic surgery. Dr. Jarvis has evaluated the patient and cleared him for surgical intervention. He denies the patient has pneumonia and Zosyn will be discontinued. Patient states that he is feeling about the same as yesterday. His swallowing status is about the same as yesterday. His cardiac nurse practitioner is sinus rhythm with ectopy. We have added in consult for neurology to manage myasthenia gravis while hospitalized. Patient has been afebrile, heart rate 79, blood pressure 116/88, pulse ox 90% on 2 L nasal cannula. Repeat blood work reveals WBC 24.9, hemoglobin 15.3. Sodium 136, potassium 4.2, chloride 113, CO2 24, BUN 21 and creatinine 0.66. Blood sugars are running [id number]. Hemoglobin A1c is 5.8. ALT 65. 06/22: Patient was seen yesterday by cardiothoracic surgery and was recommended medical management versus high risk stenting and signed off. Patient was started on IVIG by neurology yesterday developed atrial fibrillation in the IVIG was stopped. IV steroids were also discontinued. Patient has subsequently developed worsening mental status, respiratory difficulty requiring BiPAP and hypotension. Patient is currently on trips in the form of norepinephrine, Esmolol, amiodarone and heparin, dobutamine. Nursing discussed with patient his wishes yesterday afternoon and he wanted to have aggressive treatment. At this time, plan is for transfer to a tertiary care center for plasma phoresis. Patient is to be intubated and central lines and arterial line placed before transfer. Dr. Cordoba has provided report to physician at [facility] and patient accepted. Await completion of transfer arrangements. Assessment and plan 1 non-ST [place]: With multiple coronary artery disease. 2 aspiration pneumonia ruled out by Dr. Jarvis. 3 severe progressive myasthenia gravis. 4 Hypertension. 5 significant leukocytosis: Mostly secondary to steroid use. 6 abnormal liver function test: Not a clear etiology. 7 steroid-induced hyperglycemia. 8 metabolic encephalopathy 9 cardiogenic shock 10 hypothermia secondary to cardiogenic shock 11 A. fib with RVR, paroxysmal Impression and plan of care have been directed as dictated by the signing physician. Liz Marie nurse practitioner acting as scribe for signing physician. Plan - Transfer Summary Transfer Medications: Active Medications Generic Name Dose Route Start Last Admin Trade Name Freq PRN Reason Stop Dose Admin Acetaminophen 650 mg 06/20/20 20:12 Tylenol Tab PO Q6H PRN Fever and/ or Pain Albuterol Sulfate 2.5 mg 06/20/20 20:12 Ventolin Nebulized INHALATION RT-QID PRN Shortness Of Breath Aspirin 81 mg 06/21/20 09:00 06/22/20 08:02 Aspirin PO Not Given DAILY [facility] Atorvastatin Calcium 80 mg 06/21/20 09:00 06/22/20 08:02 Lipitor PO Not Given DAILY [facility] Famotidine 20 mg 06/21/20 09:00 06/22/20 08:02 Pepcid PO Not Given DAILY [facility] Heparin Sodium (Porcine) 0 unit 06/20/20 17:19 Heparin IV PER PROTOCOL PRN Low PTT Protocol Heparin Sodium/Sodium Chloride 250 mls @ 9.9 mls/hr 06/20/20 17:30 06/22/20 08:50 25,000 unit/ Sodium Chloride IV 0 units/kg/hr .Q24H [facility] 0 mls/hr Titration Protocol 12 UNITS/KG/HR Immune Globulin 20 gm/ IV 200 mls @ 0 mls/hr 06/23/20 16:00 Solution IV 06/23/20 16:01 .Q0M ONE Protocol Titrate Immune Globulin 30 gm/ IV 300 mls @ 0 mls/hr 06/23/20 18:00 Solution IV 06/23/20 18:01 .Q0M ONE Protocol Per Protocol Immune Globulin 20 gm/ IV 200 mls @ 0 mls/hr 06/24/20 16:00 Solution IV 06/24/20 16:01 .Q0M ONE Protocol Titrate Immune Globulin 30 gm/ IV 300 mls @ 0 mls/hr 06/24/20 18:00 Solution IV 06/24/20 18:01 .Q0M ONE Protocol Per Protocol Amiodarone HCl 300 mg/ 250 mls @ 25 mls/hr 06/22/20 02:00 06/22/20 00:54 Dextrose/Water IV 06/22/20 19:59 0.5 mg/min .Q10H [facility] 25 mls/hr Administration Protocol 0.5 MG/MIN Esmolol HCl/Sodium Chloride 2. 250 mls @ 12.465 mls/hr 06/21/20 21:00 06/22/20 05:44 5 gm/ IV Solution IV 75 mcg/kg/min .Q20H4M [facility] 37.395 mls/hr Administration Protocol 25 MCG/KG/MIN Norepinephrine Bitartrate 4 mg 254 mls @ 15.831 mls/hr 06/22/20 02:15 06/22/20 08:06 / Sodium Chloride IV 0.15 mcg/kg/min .Q16H3M [facility] 47.492 mls/hr Titration Protocol 0.05 MCG/KG/MIN Immune Globulin 30 gm/ IV 300 mls @ 0 mls/hr 06/22/20 16:00 Solution IV 06/22/20 16:01 .Q0M ONE Protocol Per Protocol Dobutamine HCl/Dextrose 500 mg 250 mls @ 6.225 mls/hr 06/22/20 09:30 / IV Solution IV .Q24H [facility] 2.5 MCG/KG/MIN Insulin Aspart 0 unit 06/22/20 06:00 06/22/20 06:07 Novolog SQ 2 unit Q6H [facility] Administration Protocol Lorazepam 0.5 mg 06/22/20 00:26 Ativan IV Q4HR PRN Anxiety Losartan Potassium 25 mg 06/21/20 09:00 06/22/20 08:02 Cozaar PO Not Given DAILY [facility] Metoprolol Tartrate 25 mg 06/21/20 09:00 06/22/20 08:02 Lopressor PO Not Given BID [facility] Mupirocin 1 applic 06/20/20 21:00 06/22/20 08:03 Bactroban Oint NASAL 06/25/20 21:01 Not Given BID [facility] Ondansetron HCl 4 mg 06/20/20 20:35 Zofran IVP Q4H PRN Nausea And Vomiting Pyridostigmine [place] 120 mg 06/21/20 07:30 06/22/20 06:46 Mestinon PO Not Given AC-TID [facility] Follow up Appointment(s)/Referral(s): [facility], [NON-STAFF] - 1-2 Days - Out of Hospital Transfer - Req. Specs Out of Hospital Transfer - Requested Specifics: Medical ICU
[2020-06-22 12:10] VITALS: BP 100/76
[2020-06-22 12:48] LABS: Glucose,Whole Blood 132 mg/dL (75-99)
[2020-06-22 12:59] LABS: VBG PH 7.36 (7.31-7.41)
--- NOTE | 2020-06-22 14:09 | P.PN ---
Subjective Progress Note Date: 06/22/20 Principal diagnosis: Acute hypoxic respiratory failure secondary to worsening myasthenia gravis and cardiogenic shock. This is an 80-year-old white male with history of myasthenia gravis. Patient was admitted to [facility] on 06/17/20, and he was mostly admitted with difficulty swallowing and shortness of breath with significant anorexia. CT of the chest and chest x-ray question the possibility of aspiration pneumonia. Patient was placed on antibiotics. And he was also placed on his usual dose of Mestinon for underlying myasthenia gravis. While inpatient, patient developed nonsustained ventricular tachycardia, and elevation of his BNP. Echocardiogram showed significant LV dysfunction with ejection fraction of 30-35%. Patient underwent further cardiac workup including cardiac catheterization, and he was found to have significant triple-vessel coronary artery disease. Considering the cardiac catheterization findings, patient was transferred to [facility], and he is to be seen by surgery to consider myocardial revascularization. Considering his myasthenia gravis and recent episode of questionable pneumonia, this consult was initiated. Patient denies any cough, no fever, no chills, no hemoptysis, he does have difficulty swallowing, and he is now on antibiotics in the form of Zosyn. Chest x-ray done on this admission showed no evidence of infiltrate. Patient had no previous pulmonary history, lifelong nonsmoker. Patient was reevaluated today on 06/22/20, overnight, the patient's condition deteriorated. He developed worsening shortness of breath, worsening hypotension requiring norepinephrine, worsening atrial fibrillation with RVR requiring amiodarone. And worsening picture of cardiogenic shock requiring Dobutrex. His myasthenia gravis also seems to be getting worse, his negative inspiratory pressure is down to -6. And could not perform a vital On the patient. Patient was placed on BiPAP last night. However considering his overall worsening clinical status, I evaluated the patient today, and felt it would be best to transfer the patient to [facility] for possible plasmapheresis. He received IVIG yesterday, which may have contributed to his worsening cardiac status. At any rate discussed his condition with different consultants and with the admitting physician as well as with cardiology and neurology, we all felt that it would be best to stabilize the patient and arrange for transfer to a tertiary care center. Patient was intubated by me, lines were placed including right IJ central line, and a right femoral arterial line. ABG post intubation showed a pO2 of over 400 pCO2 of 36 pH of 7.39. Lactic acid was noted to be 1.9 patient is now on mechanical ventilation, off BiPAP, he is on multiple drips including esmolol. Amiodarone, Dobutrex, amiodarone, norepinephrine, and he is on heparin. Blood pressure is marginal. And patient is in atrial fibrillation with a rate of 77. Yesterday the patient received Lasix 1 dose, he also received Lasix earlier today, not much improvement with Lasix. Patient also failed his modified barium swallow yesterday obviously were dealing with a very complex intubation with worsening myasthenia gravis, worsening cardiac picture suggestive of cardiogenic shock. Objective - Vital Signs Vital signs: Vital Signs Temp 98 F 06/22/20 00:00 Pulse 125 H 06/22/20 12:00 Resp 19 06/22/20 12:00 BP 100/76 06/22/20 11:00 Pulse Ox 98 06/22/20 12:00 Intake & Output 06/21/20 06/22/20 06/22/20 18:59 06:59 18:59 Intake Total 925 604.094 575.028 Output Total 460 25 Balance 925 144.094 550.028 Weight 83 kg Intake: IV 825 145 40 0.9 NS 70 40 Sodium Chloride 0.9% 1, 825 75 000 ml @ 75 mls/hr IV . [id number] [facility] Rx#:[id number] Intake, IV Titration 100 459.094 535.028 Amount Amiodarone 300 mg In 225 Dextrose 5% in Water 250 ml @ 0.5 MG/MIN 25 mls/hr IV .Q10H [facility] Rx#: [id number] Esmolol in Sodium 249.509 Chloride Pmx 2.5 gm In Saline 1 250ml.bag @ 25 MCG/KG/MIN 12.465 mls/hr IV .Q20H4M [facility] Rx#: [id number] Heparin Sod,Pork in 0.45% 166.788 97.9 NaCl 25,000 unit In 0.45 % NaCl 1 250ml.bag @ 12 UNITS/KG/HR 9.9 mls/hr IV .Q24H [facility] Rx#:[id number] Norepinephrine 4 mg In 42.797 212.128 Sodium Chloride 0.9% 250 ml @ 0.05 MCG/KG/MIN 15. 831 mls/hr IV .Q16H3M [facility] Rx#:[id number] Piperacillin-Tazobactam 3 100 .375 gm In Sodium Chloride 0.9% 100 ml @ 25 mls/hr IVPB Q8HR [facility] Rx# :[id number] Output: Urine 460 25 Other: Voiding Method Urinal Urinal Indwelling Catheter # Voids 1 # Bowel Movements 1 ABP, PAP, CO, CI - Last Documented Arterial Blood Pressure 81/54 - Exam General Appearance: Revealed an 80-year-old white male, on BiPAP, frail looking, and extremely weak. Neck HEENT: PERRLA, EOMI, no icterus, no neck masses, no JVD. Lungs: Symmetrical expansion, minimal fine crackles at the bases, no rhonchi and no wheezes. Chest Wall: Symmetrical chest expansion, no chest wall tenderness. Heart: Irregular irregular rhythm Normal S1 and S2, no gallop, 2/6 systolic murmur at the left lower sternal border.. Abdomen: Soft nontender no megaly no rebound no guarding. Positive bowel sounds. Extremities: No clubbing edema or cyanosis. Diminished distal pulses bilaterally. I was able to palpate a good femoral pulse, and a right femoral arterial line was placed. Skin: Cold and clammy with poor distal pulses Neurologic: Arousable, but weak, follows simple instructions, tends to be lethargic. And sleepy Psychiatric: Blunted affect. Cannot fully assess mental status. - Labs CBC & Chem 7: 06/22/20 05:59 06/22/20 05:59 Labs: Abnormal Lab Results - Last 24 Hours (Table) 06/21/20 06/21/20 06/22/20 Range/Units 16:57 20:46 05:59 WBC 19.0 H (3.8-10.6) k/uL Plt Count 147 L (150-450) k/uL Neutrophils # 15.2 H (1.3-7.7) k/uL Monocytes # 2.0 H (0-1.0) k/uL ABG pO2 (83-108) mmHg ABG O2 Saturation (94-97) % VBG HCO3 (24-28) mmol/L Chloride (98-107) mmol/L BUN (9-20) mg/dL Glucose (74-99) mg/dL POC Glucose (mg/dL) 126 H 222 H (75-99) mg/dL Total Bilirubin (0.2-1.3) mg/dL AST (17-59) U/L ALT (4-49) U/L Total Protein (6.3-8.2) g/dL Albumin (3.5-5.0) g/dL 06/22/20 06/22/20 06/22/20 Range/Units 05:59 06:04 11:09 WBC (3.8-10.6) k/uL Plt Count (150-450) k/uL Neutrophils # (1.3-7.7) k/uL Monocytes # (0-1.0) k/uL ABG pO2 >400 H (83-108) mmHg ABG O2 Saturation 99.8 H (94-97) % VBG HCO3 (24-28) mmol/L Chloride 111 H (98-107) mmol/L BUN 29 H (9-20) mg/dL Glucose 170 H (74-99) mg/dL POC Glucose (mg/dL) 147 H (75-99) mg/dL Total Bilirubin 1.5 H (0.2-1.3) mg/dL AST 109 H (17-59) U/L ALT 157 H (4-49) U/L Total Protein 6.2 L (6.3-8.2) g/dL Albumin 3.4 L (3.5-5.0) g/dL 06/22/20 06/22/20 Range/Units 12:47 12:47 WBC (3.8-10.6) k/uL Plt Count (150-450) k/uL Neutrophils # (1.3-7.7) k/uL Monocytes # (0-1.0) k/uL ABG pO2 (83-108) mmHg ABG O2 Saturation (94-97) % VBG HCO3 21 L (24-28) mmol/L Chloride (98-107) mmol/L BUN (9-20) mg/dL Glucose (74-99) mg/dL POC Glucose (mg/dL) 132 H (75-99) mg/dL Total Bilirubin (0.2-1.3) mg/dL AST (17-59) U/L ALT (4-49) U/L Total Protein (6.3-8.2) g/dL Albumin (3.5-5.0) g/dL Microbiology - Last 24 Hours (Table) 06/20/20 21:45 Nasal Screen MRSA/MSSA - Final Nasal Swab Assessment and Plan Assessment: Impression: Impending and acute hypoxic respiratory failure secondary to cardiogenic shock and worsening myasthenia gravis. New onset atrial fibrillation requiring multiple antiarrhythmic agents. Cardiogenic shock requiring norepinephrine, and inotropes in the form of Dobutrex. Acute non-ST elevation myocardial infarction. Ischemic cardiomyopathy and LV dysfunction. Questionable aspiration pneumonia on his initial presentation, no evidence of pneumonia seen on chest x-ray on this admission. Progressive myasthenia gravis. No improvement with IVIG, patient will likely benefit from plasmapheresis. Benign essential hypertension. Recommendation: Intubation and mechanical ventilation, and this was done prior to transferring the patient down to a tertiary care center. Lines were placed including a right IJ central line, and right femoral arterial line was placed. Dobutrex was started present at 5 mcg/kg/m. Titrate norepinephrine to maintain a mean arterial pressure of 65. Hold on further IVIG infusions. Continue empiric antibiotics. Continue antiarrhythmic agents as per cardiology including amiodarone, and esmolol Continue present supportive care measures. Continue Zosyn empirically. Had a long discussion with all the consultants on the case including cardiology, internal medicine, neurology, and the plan is to stabilize the patient as much as possible and arrange for transfer to [facility]. Again the patient will be transferred for plasmapheresis. Patient is obviously critically ill, critical care time is 40 minutes, not including the time spent on procedures including intubation, central line placement, and arterial line placement. Time with Patient: Greater than 30
[2020-06-22 14:42] LABS: ABG Base Excess 0.6 mmol/L; ABG HCO3 25 mmol/L (21-25); ABG Oxygen Saturation 75.1 % (94-97); ABG PCO2 36 mmHg (35-45); ABG PH 7.44 (7.35-7.45); ABG TCO2 26 mmol/L (19-24)
[2020-06-22 14:47] LABS: ABG PO2 39 mmHg (83-108)
[2020-06-22 14:48] LABS: Allen Test Performed? no
[2020-06-22] MEDS ORDERED: IMMUNE GLOBULIN (GAMMAGARD) 30 GM in EMPTY BAG 1 BAG IV ONE (16:00)
[2020-06-22] MEDS ORDERED: IMMUNE GLOBULIN (GAMMAGARD) 20 GM in EMPTY BAG 1 BAG IV ONE (16:00)
[2020-06-22 17:18] VITALS: PULSE 111; RESP 20
--- NOTE | 2020-06-22 17:33 | OP ---
OPERATIVE REPORT OPERATION: Endotracheal intubation. PREOPERATIVE DIAGNOSIS: Impending respiratory failure secondary to myasthenia gravis and secondary to cardiogenic shock. POSTOPERATIVE DIAGNOSIS: Impending respiratory failure secondary to myasthenia gravis and secondary to cardiogenic shock. ANESTHESIA USED: The patient received the 4 mg of morphine and 4 mg of Versed. PROCEDURE: The patient was placed in a supine position. The patient was being monitored closely with O2 saturation monitoring, blood pressure was monitored intermittently, and the cardiac rhythm was continuously monitored. After adequate sedation using morphine and Versed, the GlideScope was used, the tongue was depressed, there was direct visualization of the vocal cords. A size 8.0 endotracheal tube was inserted with direct visualization of the vocal cords via GlideScope. The tube was advanced down below the vocal cords, cuff was inflated. There was a collar change. Cuff was inflated and the tube was connected to mechanical ventilation. Chest x-ray showed no evidence of any immediate complications. The procedure was tolerated and, again, no complications. MMODL / IJN: [id number] /
--- NOTE | 2020-06-22 17:33 | PCN ---
PROCEDURE NOTE Placement of a right IJ triple-lumen catheter. PREOPERATIVE DIAGNOSIS: Acute respiratory failure secondary to worsening myasthenia gravis and cardiogenic shock. POSTOPERATIVE DIAGNOSIS: Acute respiratory failure secondary to worsening myasthenia gravis and cardiogenic shock. ANESTHESIA USED: Two mL of 1% lidocaine. PROCEDURE: The patient was placed in a Trendelenburg position, the area of the right cervical region was prepared in a sterile fashion and drapes were applied. The area below the posterior belly of the sternocleidomastoid was locally anesthetized. Then using the posterior approach, the right internal jugular vein was easily cannulated, a guidewire was placed, the area was dilated around the guidewire, and a triple-lumen catheter was inserted over the guidewire, guidewire was removed and there was good blood flow in the 3 different ports of the triple-lumen catheter. Chest x-ray showed adequate placement, the line was secured using 3.0 silk sutures. Again, no evidence of any immediate complications. MMODL / IJN: [id number] /
--- NOTE | 2020-06-22 17:36 | OP ---
OPERATIVE REPORT OPERATION: Placement of a right femoral arterial line. PREOPERATIVE DIAGNOSIS: Hypotension. POSTOPERATIVE DIAGNOSIS: Cardiogenic shock and hypotension. ANESTHESIA USED: 2 mL of 1% lidocaine. PROCEDURE: The area of the right groin was prepared in a sterile fashion. Drapes were applied. The area was locally anesthetized. Then, the right femoral artery was cannulated easily, a guidewire was placed, the area was dilated, and a femoral catheter was inserted over the guidewire and the guidewire was removed. Good blood flow and good waveform noted. The line was secured using 3.0 silk sutures. No evidence of any immediate complications. MMODL / IJN: [id number] /
[2020-06-22] MEDS ORDERED: CHLORHEXIDINE GLUCONATE 15 ML CUP MUCOUS MEM SCH (21:00)
[2020-06-23] MEDS ORDERED: IMMUNE GLOBULIN (GAMMAGARD) 20 GM in EMPTY BAG 1 BAG IV ONE (16:00)
[2020-06-23] MEDS ORDERED: IMMUNE GLOBULIN (GAMMAGARD) 30 GM in EMPTY BAG 1 BAG IV ONE (18:00)
[2020-06-24] MEDS ORDERED: IMMUNE GLOBULIN (GAMMAGARD) 20 GM in EMPTY BAG 1 BAG IV ONE (16:00)
[2020-06-24] MEDS ORDERED: IMMUNE GLOBULIN (GAMMAGARD) 30 GM in EMPTY BAG 1 BAG IV ONE (18:00)
== END 2020-06-22 18:50 | disposition short-term general hospital (02) | DRG 280 ==
LOC: 2SICU 17:07
PROVIDERS: ADMIT Family Medicine; ATTEND Family Medicine
PROC: 03HY32Z Insertion of Monitoring Device into Upper Artery, Percutaneous Approach (ICD-10-PCS; principal; 2020-06-22)
PROC: 02H633Z Insertion of Infusion Device into Right Atrium, Percutaneous Approach (ICD-10-PCS; principal; 2020-06-22)
PROC: 4A133B1 Monitoring of Arterial Pressure, Peripheral, Percutaneous Approach (ICD-10-PCS; principal; 2020-06-22)
PROC: 06HY33Z Insertion of Infusion Device into Lower Vein, Percutaneous Approach (ICD-10-PCS; principal; 2020-06-22)
PROC: 0BH17EZ Insertion of Endotracheal Airway into Trachea, Via Natural or Artificial Opening (ICD-10-PCS; principal; 2020-06-22)
PROC: 5A1935Z Respiratory Ventilation, Less than 24 Consecutive Hours (ICD-10-PCS; principal; 2020-06-22)
PROC: 4A133J1 Monitoring of Arterial Pulse, Peripheral, Percutaneous Approach (ICD-10-PCS; principal; 2020-06-22)
PROC: 5A09357 Assistance with Respiratory Ventilation, Less than 24 Consecutive Hours, Continuous Positive Airway Pressure (ICD-10-PCS; 2020-06-22)
DX: I21.4 Non-ST elevation (NSTEMI) myocardial infarction (principal); G70.01 Myasthenia gravis with (acute) exacerbation; J96.01 Acute respiratory failure with hypoxia; R57.0 Cardiogenic shock; G93.41 Metabolic encephalopathy; I47.2 Ventricular tachycardia; J98.11 Atelectasis; I25.10 Atherosclerotic heart disease of native coronary artery without angina pectoris; I11.9 Hypertensive heart disease without heart failure; I25.5 Ischemic cardiomyopathy; I48.91 Unspecified atrial fibrillation; I49.3 Ventricular premature depolarization; R13.10 Dysphagia, unspecified; Z20.828 Contact with and (suspected) exposure to other viral communicable diseases; T38.0X5A Adverse effect of glucocorticoids and synthetic analogues, initial encounter; Z79.82 Long term (current) use of aspirin; Z79.899 Other long term (current) drug therapy; Z82.0 Family history of epilepsy and other diseases of the nervous system; R63.0 Anorexia; Z68.26 Body mass index [BMI] 26.0-26.9, adult; R73.9 Hyperglycemia, unspecified; D72.829 Elevated white blood cell count, unspecified; R94.5 Abnormal results of liver function studies; J45.909 Unspecified asthma, uncomplicated
CPT/HCPCS: 71045; 74230; 80053; 80061; 80074; 81001; 82803; 82805; 83036; 83605; 83735; 84100; 85025; 85610; 85730; 87070; 93306; 93880; 93970; 94660